=== PATIENT | male | born 1955 | race Caucasian/White ===

== ENCOUNTER 2020-09-14 09:56 | Outpatient (REF) | payer MEDICARE, OTHER, SELFPAY | END 2020-09-14 09:57 | disposition home or self-care (01) | LOC: HO.HMGCLDS 09:56 | PROVIDERS: PCP Internal Medicine; Visit Provider Internal Medicine | DX: Z20.828 Contact with and (suspected) exposure to other viral communicable diseases (principal) | CPT/HCPCS: C9803; U0003 ==

== ENCOUNTER 2021-05-22 10:26 | Outpatient (REF) | payer MEDICARE, OTHER, SELFPAY ==
--- NOTE | ~2021-05-22 | CT_ITS ---
EXAMINATION: CT CHEST SCREENING CLINICAL INFORMATION: Smoking history. Lung cancer screening. COMPARISON: Previous chest CT scans most recent March 2020 TECHNIQUE: Multidetector volumetric CT imaging of the chest is performed without contrast using low dose technique. Additional 2D coronal and sagittal reformatted images and axial 3D maximum intensity projection (MIP) images are generated on the CT workstation. This CT examination was performed using dose optimization techniques as appropriate, variously including the following: *Automated exposure control *Adjustment of mA and/or kV according to patient size (this includes techniques or standardized protocols for targeted exams where dose is matched to indication/reason for exam; i.e. extremities or head) *Use of iterative reconstruction technique DLP: 53 mGy-cm FINDINGS: LUNGS: The small pulmonary nodules in the right upper and right middle lobes are stable. No new pulmonary nodule is seen. MEDIASTINUM: The ascending thoracic aorta is dilated and measures 4.5 x 5 cm. This is increased from 4.1 x 4.4 cm March 2020. There are post-CABG changes. The heart does not appear enlarged. There is no pericardial effusion. There are no enlarged hilar or mediastinal lymph nodes. PLEURA: There is no pleural effusion. No pleural mass or thickening. AXILLA: No lymphadenopathy. UPPER ABDOMEN: The gallbladder is been removed. There is a subxiphoid the xiphoid hernia containing fat. There is diverticulosis of the colon. OSSEOUS STRUCTURES: There is an ununited median sternotomy. There are degenerative changes of the spine. CT/CT lung screening IMPRESSION: Stable right pulmonary nodules. Increasing dilatation of the ascending thoracic aorta now measuring 4.5 x 5 cm. Post-CABG changes. Ununited median sternotomy and subxiphoid hernia containing fat.. ASSESSMENT: Lung-RADS category 2S: Benign RECOMMENDATION: Annual low-dose chest CT follow-up in one year recommended. A surgical consultation for increasing size of the ascending thoracic aorta should be considered.
== END 2021-05-22 10:27 | disposition home or self-care (01) ==
LOC: HO.CT 10:26
PROVIDERS: PCP Internal Medicine; Visit Provider Physician Assistant Medical
DX: Z12.2 Encounter for screening for malignant neoplasm of respiratory organs (principal); F17.210 Nicotine dependence, cigarettes, uncomplicated
CPT/HCPCS: 71271

== ENCOUNTER 2021-06-19 11:08 | Outpatient (REF) | payer MEDICARE, OTHER, SELFPAY ==
[2021-06-19 12:27] LABS: Anion Gap 13 (12-20); Blood Urea Nitrogen 11 mg/dL (9-16); Calcium 9.3 mg/dL (8.4-10.2); Carbon Dioxide 28 mmol/L (22-29); Chloride 102 mmol/L (96-108); Estimated Glomerular Filt Rate > 60; Glucose Random 102 mg/dL (60-115); Potassium 4.3 mmol/L (3.3-5.1); Sodium 139 mmol/L (135-145)
== END 2021-06-19 11:09 | disposition home or self-care (01) ==
LOC: HO.LAB 11:08
PROVIDERS: Visit Provider Internal Medicine Cardiovascular Disease
DX: I71.2 Thoracic aortic aneurysm, without rupture (principal)
CPT/HCPCS: 36415; 80048

== ENCOUNTER 2021-06-22 07:38 | Outpatient (REF) | payer MEDICARE, OTHER, SELFPAY ==
--- NOTE | ~2021-06-22 | CT_ITS ---
EXAMINATION: CT ANGIOGRAM CHEST CLINICAL INFORMATION: Thoracic aortic aneurysm COMPARISON: Chest CT on 04/18/2020 TECHNIQUE: Multiple axial images were obtained through the chest after the administration of 70 mL of Omnipaque 350 intravenous contrast. Extensive vascular post-processing including two-dimensional and three-dimensional reformatted images were created and reviewed on an independent workstation. This CT examination was performed using dose optimization techniques as appropriate, variously including the following: *Automated exposure control *Adjustment of mA and/or kV according to patient size (this includes techniques or standardized protocols for targeted exams where dose is matched to indication/reason for exam; i.e. extremities or head) *Use of iterative reconstruction technique DLP: 143 mGy-cm FINDINGS: Heart/Aorta: The heart is globally normal in size. The coronary arteries arise from the expected coronary sinuses; there is no anomaly of coronary arterial origin. The thoracic aorta is enlarged measuring 4.0 x 3.8 cm in the midportion. This tapers to normal caliber at the level of the arch. The descending thoracic aorta is normal in caliber. There is no evidence of aortic dissection, intramural hematoma, or atherosclerotic penetrating ulcer. Aortic arch anatomy is conventional. Mild atherosclerotic disease. There are coronary artery calcifications. Other Cardiovascular: The main pulmonary artery is normal in caliber. The well opacified portions of the pulmonary arterial system are patent. There is no pericardial effusion or pericardial thickening. Mediastinum/Teresa: There are no pathologically enlarged mediastinal or hilar lymph nodes. Pleura: The pleural surfaces are normal bilaterally. There is no pleural effusion. There is no pneumothorax. Lungs: Multiple scattered micronodules (less than 4 mm). There is no pulmonary parenchymal mass, consolidation, ground-glass attenuation, or discrete suspicious pulmonary nodule. Airways: The central airways are patent. The peripheral airways are normal. There is no bronchiectasis. Upper Abdomen: Partially visualized focus of hyperenhancement in the inferior right hepatic lobe measuring 1.3 cm. Musculoskeletal: There is no aggressive osseous lesion. The structures of the chest wall, including the bones, are normal for age. CT/CT angio chest IMPRESSION: 1. Ascending thoracic aortic aneurysm measuring 4.0 cm. 2. Partially visualized focus of hyperenhancement in the inferior right hepatic lobe measuring 1.3 cm. Not previously imaged. This may represent a small hemangioma. Consider ultrasound for further evaluation.
[2021-06-22] MEDS: iohexoL 350 MG/ML 100 ML INFUS..BTL 70 ML IV (09:08)
== END 2021-06-22 07:39 | disposition home or self-care (01) ==
LOC: HO.CT 07:38
PROVIDERS: Visit Provider Internal Medicine Cardiovascular Disease
DX: I71.2 Thoracic aortic aneurysm, without rupture (principal)
CPT/HCPCS: 71275; Q9967

== ENCOUNTER → 2021-07-26 09:53 | Outpatient (BNVA) | payer MEDICARE, OTHER, SELFPAY | PROVIDERS: Visit Provider Internal Medicine Cardiovascular Disease | DX: K43.2 Incisional hernia without obstruction or gangrene (principal); I25.10 Atherosclerotic heart disease of native coronary artery without angina pectoris; I77.810 Thoracic aortic ectasia | CPT/HCPCS: 93005; 99212 ==

== ENCOUNTER → 2021-08-21 15:27 | Outpatient (BNVA) | payer MEDICARE, OTHER, SELFPAY | PROVIDERS: Visit Provider Surgery | DX: K43.2 Incisional hernia without obstruction or gangrene (principal) | CPT/HCPCS: 99202 ==

== ENCOUNTER 2021-09-26 07:24 | Day surgery (SDC) | payer MEDICARE, OTHER, SELFPAY ==
[2021-09-18 11:17] VITALS: BMI 27.4
--- NOTE | 2021-09-18 13:34 | HO.ANESPROP2 ---
Documented by User: Anupama Blanchard NP 09/25/21 10:32 HPI - Anesthesia Eval Consult details Narrative: 66yo M for Epigastric Incisional Hernia Repair Referred to Gen Surg by cardiology at yearly cardiol f/u appt 06/2021. Clinically stable at 06/2021 cardiac appointment [facility] Active Problems Active Problems: All Active Problems (Updated 09/18/21 @ 11:12 by Birgit Sam RN) Dilation of thoracic aorta (Acute) Ascending aortic aneurysm (Acute) Postoperative abdominal hernia (Acute) Incisional hernia (Acute) CAD (coronary artery disease) (Acute) Personal history of nicotine dependence (Acute) Past Medical History Medical History Ascending aortic aneurysm CAD (coronary artery disease) COPD (chronic obstructive pulmonary disease) HTN (hypertension) Hyperlipidemia Incisional hernia Personal history of nicotine dependence Family History Family History Father No problems noted. Mother Diabetes mellitus Myocardial infarction CVD (cardiovascular disease) Maternal Grandfather No problems noted. Maternal Grandmother No problems noted. Paternal Grandfather No problems noted. Paternal Grandmother History of heart attack Brother No problems noted. Brother No problems noted. Brother No problems noted. Brother No problems noted. Sister HTN (hypertension) Diabetes mellitus Crohn's disease Sister No problems noted. Son No problems noted. Daughter No problems noted. Surgical History Surgical History History of colonoscopy History of endoscopy History of esophagogastroduodenoscopy (EGD) History of inguinal hernia History of microdiscectomy History of plastic surgery History of surgery Hx of cholecystectomy S/P triple vessel bypass Social History Social History Patient Tobacco Use Status: Current everyday Tobacco user Tobacco use type: Cigarette Cigarettes Per Day: 10 Advance Directives Information Provided: Yes (informational brochure mailed) Advance Directives on File: No Meds Allergies Allergy/AdvReac Type Severity Reaction Status Date / Time No Known Allergies Allergy Verified 09/26/21 07:55 [No Known Allergies*] Home Medications Medication Instructions Recorded Confirmed Last Taken Type amlodipine 5 mg tablet 5 mg PO DAILY 07/26/21 09/18/2109/26/21 06:30 History aspirin 81 mg tablet,delayed 81 mg PO DAILY 07/26/21 09/18/21 09/25/21 07:30 History release (Adult Low Dose Aspirin) atorvastatin 80 mg tablet 80 mg PO DAILY 07/26/21 09/18/21 Unknown History clopidogrel 75 mg tablet (Plavix) 75 mg PO DAILY 07/26/21 09/18/21 09/20/21 07:30 History finasteride 5 mg tablet 5 mg PO DAILY 07/26/21 09/18/21 Unknown History hydrochlorothiazide 25 mg tablet 25 mg PO DAILY 07/26/21 09/18/21 Unknown History lisinopril 20 mg tablet 20 mg PO DAILY 07/26/21 09/18/21 Unknown History metoprolol tartrate 25 mg tablet 12.5 mg PO BID 07/26/21 09/18/21 09/26/21 06:30 History pantoprazole 40 mg tablet,delayed 40 mg PO DAILY 07/26/21 09/18/21 09/26/21 06:30 History release tamsulosin 0.4 mg capsule 0.4 mg PO DAILY 07/26/21 09/18/21 Unknown History tiotropium bromide 1.25 2 puff INHALATION DAILY 07/26/21 09/18/21 09/26/21 06:30 History mcg/actuation mist for inhalation (Spiriva Respimat) Exam Exam Date and Time: September 18, 2021 1334 Height,Weight and Vital Signs: Height 5 ft 5 in Weight 74.843 kg Narrative Narrative: EKG 06/2021 Normal sinus rhythm 61 beats per minute, premature atrial complexes with aberrant conduction, left atrial QTC [address] angio chest 05/2021 IMPRESSION:? ? 1.? Ascending thoracic aortic aneurysm measuring 4.0 cm. 2.? Partially visualized focus of hyperenhancement in the inferior right hepatic lobe measuring 1.3 cm. Not previously imaged. This may represent a small hemangioma. Consider ultrasound for further evaluation. ECHO 2019 Nml LV systolic function Impaired relax Cardiac valve wnl RV systolic pressure normal No pericard effusion Assessment and Plan Assessment Anesthesia Assessment: Chart Reviewed Documented by User: Ibis Conde MD 09/26/21 08:53 [facility] Past Medical History Medical History Ascending aortic aneurysm CAD (coronary artery disease) COPD (chronic obstructive pulmonary disease) HTN (hypertension) Hyperlipidemia Incisional hernia Personal history of nicotine dependence Family History Family History Father No problems noted. Mother Diabetes mellitus Myocardial infarction CVD (cardiovascular disease) Maternal Grandfather No problems noted. Maternal Grandmother No problems noted. Paternal Grandfather No problems noted. Paternal Grandmother History of heart attack Brother No problems noted. Brother No problems noted. Brother No problems noted. Brother No problems noted. Sister HTN (hypertension) Diabetes mellitus Crohn's disease Sister No problems noted. Son No problems noted. Daughter No problems noted. Surgical History Surgical History History of colonoscopy History of endoscopy History of esophagogastroduodenoscopy (EGD) History of inguinal hernia History of microdiscectomy History of plastic surgery History of surgery Hx of cholecystectomy S/P triple vessel bypass History of Problems with Anesthesia: No Social History Social History Patient Tobacco Use Status: Current everyday Tobacco user Tobacco use type: Cigarette Cigarettes Per Day: 10 Advance Directives Information Provided: Yes (informational brochure mailed) Advance Directives on File: No Meds Allergies Allergy/AdvReac Type Severity Reaction Status Date / Time No Known Allergies Allergy Verified 09/26/21 07:55 [No Known Allergies*] Home Medications Medication Instructions Recorded Confirmed Last Taken Type amlodipine 5 mg tablet 5 mg PO DAILY 07/26/21 09/18/21 09/26/21 06:30 History aspirin 81 mg tablet,delayed 81 mg PO DAILY 07/26/21 09/18/21 09/25/21 07:30 History release (Adult Low Dose Aspirin) atorvastatin 80 mg tablet 80 mg PO DAILY 07/26/21 09/18/21 Unknown History clopidogrel 75 mg tablet (Plavix) 75 mg PO DAILY 07/26/21 09/18/21 09/20/21 07:30 History finasteride 5 mg tablet 5 mg PO DAILY 07/26/21 09/18/21 Unknown History hydrochlorothiazide 25 mg tablet 25 mg PO DAILY 07/26/21 09/18/21 Unknown History lisinopril 20 mg tablet 20 mg PO DAILY 07/26/21 09/18/21 Unknown History metoprolol tartrate 25 mg tablet 12.5 mg PO BID 07/26/21 09/18/21 09/26/21 06:30 History pantoprazole 40 mg tablet,delayed 40 mg PO DAILY 07/26/21 09/18/21 09/26/21 06:30 History release tamsulosin 0.4 mg capsule 0.4 mg PO DAILY 07/26/21 09/18/21 Unknown History tiotropium bromide 1.25 2 puff INHALATION DAILY 07/26/21 09/18/21 09/26/21 06:30 History mcg/actuation mist for inhalation (Spiriva Respimat) Exam Airway Mallampati Class: II TM Dist: >3cm Neck ROM: Full Loose/Missing/Broken Teeth: No Heart: RRR Lungs: exp wheeze right anterior lung field Assessment and Plan Assessment Anesthesia Assessment: Anesthesia Plan Discussed Final Anesthetic Review History of Problems with Anesthesia: No NPO: Yes ASA Class: III Final Preanesthetic Review: Meds/Allgs Chart Reviewed, Consent Obtained/Reviewed and Anes Risks/Benef Reviewed Patient Risk: Intermediate Procedure Risk: Low Anesthetic Plan Anesthetic Plan: GA Disposition: Standard PACU
[2021-09-26 08:00] VITALS: BP 124/76; PULSE 55; RESP 18; TEMP 37.2; O2SAT 97
--- NOTE | 2021-09-26 08:07 | P.HPSUR_ITS ---
Pre-Procedural Eval Section A Date of Service: 09/26/21 Section B Chief Complaint: Incisional hernia Details of Present Illness: has reducible mass on epigastric area from old CABG incision Relevant Family History (Specify if Yes): No Relevant Social History: Tobacco Use Present Medications: see Short Stay Collaborative assessment Medical History: Significant History (Coronary artery disease, aortic aneurysm) History of Previous Operations: Relevant previous surgery/procedure and date(s) (CABG) Allergies: Allergies Allergy/AdvReac Type Severity Reaction Status Date / Time No Known Allergies Allergy Verified 09/26/21 07:55 [No Known Allergies*] Review of Systems Sugical H&P ROS: Negative: Constitution, Cardiovascular, Respiratory, Neurological, Psychiatric, Hem-Onc, Allergic/Immunologic, Gastrointestinal, Genitourinary, Musculoskeletal, Integumentary, Endocrine and Eyes/Ears/Nose/Throat Exam Surgical H&P Exam: Normal: HEENT, Normal: Heart, Normal: Lungs, Normal: Extre mities, Normal: Skin and Normal: Neurological and Significant Findings: Abdomen (Reducible incisional hernia in the epigastric area just below the xiphoid) Plan Diagnosis/Plan: Unchanged I have reviewed the history and physical and performed a pertinent physical examination on my patient. No changes have occurred unless specified.
[2021-09-26] MEDS: Lactated Ringers 1,000 ML 50 ML IVCONT (08:11)
--- NOTE | 2021-09-26 09:06 | P.OP_ITS ---
Operative Note Operative Note Date of Service: 09/26/21 Narrative: Preop diagnosis: Incisional hernia, epigastric area Postop diagnosis: Incisional hernia, epigastric area Procedure: Repair of an incisional hernia with Ventralex mesh Surgeon: Leo Saldaña MD university administrative assistant: CYNDIE Mccarthy The patient is a 66-year-old male with a reducible mass on the epigastric area immediately inferior to the xiphoid from his previous CABG procedure in the past. He wanted to proceed with repair. He understood the technique of repair with this incisional hernia with mesh. He was aware of the risks, benefits, and alternatives . He was brought to the operating room and placed supine on the table under general anesthesia via laryngeal mask airway. The abdomen was prepped and draped in usual sterile fashion. A surgical time-out was done. The patient received cefazolin 2 g IV preoperatively I made a short incision on the skin below the xiphoid using blade 15 after infiltration with lidocaine 1%. This was carried down through the full- thickness of the skin and subcutaneous fat with electrocautery until was able to visualize the hernia sac. I sharply dissected the hernia sac off of the rest of the subcutaneous layer down to the fascia. I was able to define the fascia. I the hernia sac off of the fascial layer. I was able to actually keep the peritoneal layer as the hernia sac intact and proceeded to define the fascial edge. The fascial defect was about 3.9 cm in diameter. I therefore chose a medium-sized Ventralex mesh. I positioned this under the fascia and above the peritoneal layer to cover the entire fascial defect. This was flattened. I secured the Prolene straps of the mesh with Prolene 2 sutures to the fascial edge. I then closed the fascial layer with a running Maxon 1 stitch over the mesh. I irrigated. I reapposed the subcutaneous layer with Dexon 3-0 interrupted sutures. Skin closure was achieved with Dexon 4-0 subcuticular running stitch. Steri-Strips and dressings were applied. The incision was then infiltrated with Marcaine 0.5% for postop analgesia. The procedure was then completed. The patient tolerated procedure well. There were no complications noted. Initial and final counts of sponges and instruments were correct. Estimated blood loss was about 3 cc The patient was extubated without difficulty and transferred to the recovery room with stable vital signs.
[2021-09-26 09:15] VITALS: BP 124/72; PULSE 68; RESP 16; TEMP 36.7; O2SAT 97
[2021-09-26 09:20] VITALS: BP 122/76; PULSE 72; RESP 16; O2SAT 98
[2021-09-26 09:25] VITALS: BP 124/74; PULSE 68; RESP 16; O2SAT 98
[2021-09-26 09:30] VITALS: BP 117/80; PULSE 60; RESP 16; O2SAT 97
[2021-09-26 09:45] VITALS: BP 124/56; PULSE 57; RESP 16; TEMP 36.7; O2SAT 97
== END 2021-09-26 10:31 | disposition home or self-care (01) ==
PROVIDERS: Visit Provider Surgery
PROC: (CPT 49560; principal; 2021-09-26 09:10)
DX: K43.2 Incisional hernia without obstruction or gangrene (principal); I25.10 Atherosclerotic heart disease of native coronary artery without angina pectoris; F17.210 Nicotine dependence, cigarettes, uncomplicated; Z95.1 Presence of aortocoronary bypass graft; I10 Essential (primary) hypertension; E78.5 Hyperlipidemia, unspecified; Z79.82 Long term (current) use of aspirin; Z79.899 Other long term (current) drug therapy; Z79.01 Long term (current) use of anticoagulants; Z90.49 Acquired absence of other specified parts of digestive tract
CPT/HCPCS: 49560; 49568; C1781; J0690; J1100; J1885; J2250; J2405; J3010

== ENCOUNTER → 2021-10-09 09:44 | Outpatient (BNVA) | payer MEDICARE, OTHER, SELFPAY | PROVIDERS: Visit Provider Surgery | DX: Z48.815 Encounter for surgical aftercare following surgery on the digestive system (principal); Z87.19 Personal history of other diseases of the digestive system | CPT/HCPCS: 99212 ==

== ENCOUNTER → 2022-01-04 09:21 | Outpatient (BNVA) | payer MEDICARE, OTHER, SELFPAY | PROVIDERS: PCP Obstetrics & Gynecology; Referring Provider Internal Medicine; Visit Provider Internal Medicine Cardiovascular Disease | DX: I25.10 Atherosclerotic heart disease of native coronary artery without angina pectoris (principal); I77.810 Thoracic aortic ectasia; Z79.82 Long term (current) use of aspirin; Z79.899 Other long term (current) drug therapy; Z95.1 Presence of aortocoronary bypass graft | CPT/HCPCS: 99212 ==

== ENCOUNTER → 2022-02-21 08:02 | Outpatient (REF) | payer MEDICARE, OTHER, SELFPAY ==
--- NOTE | 2022-02-21 08:04 | CA_ITS ---
Transthoracic Echocardiogram Patient (Last, First, Middle): Cullen Greer B Gender: Male Date of : 1955 Age: 66 Procedure Date: 02/21/2022 Procedure Type: Transthoracic Echocardiogram Location: OP Height: 165.1 cm Weight: 73.48 kg BSA: 1.81 m2 Heart Rate: bpm BP: 120 / 80 mmHg Vice President Process: SB Referring MD: Rajesh Cason MD Symptoms: I77.810 - Thoracic aortic ectasia Study Quality: Adequate ECG Rhythm: Bradycardia Conclusions: - Normal left ventricular size, thickness, and systolic function. The visually estimated ejection fraction is between 55-60%. - E/E prime ratio is between 8 and 15 consistent with indeterminate filling pressures. - Normal right ventricular cavity size. There is borderline right ventricular systolic function. - Low global longitudinal strain. Findings Left Ventricle Normal left ventricular size, thickness, and systolic function. The visually estimated ejection fraction is between 55-60%. There is no evidence of regional wall motion abnormalities. Abnormal diastolic function is noted. Spectral Doppler is indicative of a pseudonormal filling pattern. E/E prime ratio is between 8 and 15 consistent with indeterminate filling pressures. Right Ventricle Normal right ventricular cavity size. There is borderline right ventricular systolic function. Atria Both atria are normal in size. Aortic Valve There is a normal trileaflet aortic valve. There is mild calcification of the aortic valve. There is no aortic valve stenosis. There is no aortic valve regurgitation. Mitral Valve Normal mitral valve structure and function. There is trace mitral valve regurgitation. There is no mitral valve stenosis. Pulmonic Valve Normal pulmonic valve structure and function. There is trace pulmonic valve regurgitation. Tricuspid Valve Normal tricuspid valve structure and function. There is trace tricuspid valve regurgitation. Normal right atrial pressure. There is no evidence of pulmonary hypertension. Great Vessels There is mild dilatation of the ascending aorta measuring 4.00 cm. The visualized portions of the pulmonary artery and branches are normal. Venous The inferior vena cava is normal in size and collapses greater than 50% with inspiration. Pericardium/Pleural There is no evidence of pericardial effusion. Prior Study Comparison Changes noted compared to prior study dated: 02/19/2019. Mild dilation of ascending aorta 4cm. Borderline RV function. Measurements 2D Linear Measurements IVSd: 0.81 0.6-0.9/0.6-1.0 cm LVIDd: 4.69 3.9-5.3/4.2-5.9 cm LVIDd Index: 2.59 2.4-3.2/2.2-3.1 cm/m2 LVIDs: 2.74 2.0-3.6 cm LVPWd: 0.84 0.7-1.1 cm LA Diam: 3.40 2.7-3.8/3.0-4.0 cm LAIDs Index: 1.88 1.5-2.3 cm/m2 LV Mass: 157.87 67-162/88-224 g LV Mass Index: 87.22 43-95/49-115 g/m2 LVOT Diam: 1.90 3.0+(-)1.3 cm 2D Systolic Function EF 4C: 60.70 >55% EF 2C: 63.90 >55% EF BiP: 62.40 >55% Mitral Valve MV Pk E: 1.05 MV PK A: 0.67 MV Decel Time: 205.00 E/A: 1.60 E'Lateral: 9.14 E'Medial: 6.85 E/E' Med: 15.30 E/E' Lat: 11.50 PHT: 60.00 MVA PHT: 3.67 Decel Iron: 5.12 Aortic Valve AoV Pk Atul: 1.42 AoV Mn Atul: 0.91 AoV VTI: 0.29 AoV Pk Grad: 8.00 Aov Mn Grad: 4.00 DEBRA Cont.VTI: 2.74 LVOT LVOT Pk Atul: 1.25 LVOT Mn Atul: 0.80 LVOT VTI: 0.28 LVOT Pk Grad: 6.00 LVOT Mn Grad: 3.00 LVOT Diam: 1.90 LVOT Area: 2.84 Diastolic Function MV Pk E: 1.05 MV Pk A: 0.67 E/A: 1.60 E'Medial: 6.85 E/E' Med: 15.30 E' Laterial: 9.14 E/E' Lat: 11.50 Right Ventricle TAPSE (mm): 12.40 TVS' Atul: 7.40 Tricuspid Valve TR Pk Atul: 2.25 TR Pk Grad: 20.00 RA Press: 3.00 RVSP: 23.00 Great Vessels Aorta Sinus of Valsalva: 3.15 2.0-3.[address] Ridge: 3.39 1.7-3.4 cm Ao Asc: 4.00 2.1-3.4 cm Pulmonary Veins Pulm Vein S/D 0.90 Pulmonary Valve PV Pk Atul: 1.23 Peak PV Grad: 6.00 Updated in Other Vendor System with Status of Final Rajesh Cason MD electronically signed on 02/24/2022 7:20:15 AM with status of Final
== END ==
LOC: HO.CARD 08:02
PROVIDERS: PCP Internal Medicine; Visit Provider Internal Medicine Cardiovascular Disease
DX: I77.810 Thoracic aortic ectasia (principal)
CPT/HCPCS: 93306

== ENCOUNTER → 2022-06-25 11:25 | Outpatient (BNVA) | payer MEDICARE, OTHER, SELFPAY | PROVIDERS: PCP Obstetrics & Gynecology; Visit Provider Internal Medicine Cardiovascular Disease | DX: Z01.810 Encounter for preprocedural cardiovascular examination (principal); I25.10 Atherosclerotic heart disease of native coronary artery without angina pectoris; I71.2 Thoracic aortic aneurysm, without rupture; J44.9 Chronic obstructive pulmonary disease, unspecified; F17.210 Nicotine dependence, cigarettes, uncomplicated; Z79.899 Other long term (current) drug therapy | CPT/HCPCS: 93005; 99212 ==

== ENCOUNTER 2022-06-26 08:27 | Outpatient (REF) | payer MEDICARE, OTHER, SELFPAY ==
--- NOTE | ~2022-06-26 | CT_ITS ---
EXAMINATION: CT CHEST SCREENING CLINICAL INFORMATION: Current smoker. 50 pack-year history. COMPARISON: Previous chest CT scans, most recent April and May 2021. TECHNIQUE: Multidetector volumetric CT imaging of the chest was performed without contrast using low-dose technique. Additional 2D coronal and sagittal reformatted images and axial 3D maximum intensity projection (MIP) images were generated on the CT workstation. This CT examination was performed using dose optimization techniques as appropriate, variously including the following: *Automated exposure control *Adjustment of mA and/or kV according to patient size (this includes techniques or standardized protocols for targeted exams where dose is matched to indication/reason for exam; i.e. extremities or head) *Use of iterative reconstruction technique DLP: 49 mGy-cm FINDINGS: LUNGS: There is mild emphysema. There is a 3 mm peripheral or subpleural right middle lobe nodule adjacent to the minor fissure, probably representing a subpleural lymph node (axial image 321, series 5). The lungs are otherwise clear. No new pulmonary nodule is seen. MEDIASTINUM: The ascending thoracic aorta is slightly dilated measuring 4 x 4.4 cm. This is similar to previous exams. There are post CABG changes. The heart size is normal. There is no pericardial effusion. There are small mediastinal lymph nodes. No enlarged lymph nodes. PLEURA: There is no pleural effusion. No pleural mass or thickening. AXILLAE: No lymphadenopathy. UPPER ABDOMEN: The gallbladder has been removed. There is diverticulosis of the colon. There is a duodenal diverticulum adjacent to the head of the pancreas. There is question of wall thickening of the stomach. There may have been interval repair of a subxiphoid hernia. OSSEOUS STRUCTURES: There is an ununited median sternotomy. There are degenerative changes of the spine. CT/CT lung screening IMPRESSION: Mild emphysema. Stable small right middle lobe nodule. Post CABG changes. Slightly dilated ascending thoracic aorta, similar to previous exams. Question wall thickening of the stomach. ASSESSMENT: Lung-RADS category 2S: Benign RECOMMENDATION: Annual low-dose chest CT follow up recommended. S for gastric wall thickening which could be evaluated with upper GI or endoscopy if clinically indicated.
== END 2022-06-26 08:28 | disposition home or self-care (01) ==
LOC: HO.CT 08:27
PROVIDERS: Visit Provider Physician Assistant Medical
DX: Z12.2 Encounter for screening for malignant neoplasm of respiratory organs (principal); F17.210 Nicotine dependence, cigarettes, uncomplicated
CPT/HCPCS: 71271

== ENCOUNTER → 2022-09-12 09:14 | Outpatient (BNVA) | payer MEDICARE, OTHER, SELFPAY | PROVIDERS: PCP Internal Medicine; Referring Provider Internal Medicine; Visit Provider Surgery | DX: Z12.11 Encounter for screening for malignant neoplasm of colon (principal); K22.70 Barrett's esophagus without dysplasia | CPT/HCPCS: 99212 ==

== ENCOUNTER → 2022-09-18 08:46 | Outpatient (BNVA) | payer MEDICARE, OTHER, SELFPAY | PROVIDERS: PCP Internal Medicine; Visit Provider Internal Medicine | DX: K22.70 Barrett's esophagus without dysplasia (principal); Z86.010 Personal history of colon polyps | CPT/HCPCS: 99202 ==

== ENCOUNTER 2022-10-18 07:15 | Day surgery (SDC) | payer MEDICARE, OTHER, SELFPAY ==
[2022-10-15 09:56] VITALS: BMI 26.6
[2022-10-15 10:21] VITALS: BMI 26.6
--- NOTE | 2022-10-17 10:10 | HO.ANESPROP2 ---
Documented by User: Anupama Blanchard NP 10/17/22 10:14 HPI - Anesthesia Eval Consult details Narrative: 67yo M for Upper Endoscopy and Colonoscopy Stable at yearly cardiology appt 05/2022 [facility] Active Problems Active Problems: All Active Problems (Updated 10/15/22 @ 10:25 by Lauryn Lala, ILEANA) Dilation of thoracic aorta (Acute) Ascending aortic aneurysm (Acute) Postoperative abdominal hernia (Acute) Preop cardiovascular exam (Acute) Personal history of colonic polyps (Acute) Barretts esophagus (Acute) Colon cancer screening (Acute) Incisional hernia (Acute) CAD (coronary artery disease) (Acute) Personal history of nicotine dependence (Acute) Past Medical History Medical History Ascending aortic aneurysm Barretts esophagus CAD (coronary artery disease) Colon cancer screening COPD (chronic obstructive pulmonary disease) HTN (hypertension) Hyperlipidemia Incisional hernia 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 Mother Diabetes mellitus Myocardial infarction CVD (cardiovascular disease) Maternal Grandfather No problems noted. Maternal Grandmother No problems noted. Paternal Grandfather No problems noted. Paternal Grandmother History of heart attack Brother No problems noted. Brother No problems noted. Brother No problems noted. Brother No problems noted. Sister HTN (hypertension) Diabetes mellitus Crohn's disease Sister No problems noted. Son No problems noted. Daughter No problems noted. Surgical History Surgical History History of colonoscopy History of endoscopy History of esophagogastroduodenoscopy (EGD) History of incisional hernia repair History of inguinal hernia History of microdiscectomy History of plastic surgery History of surgery Hx of cholecystectomy S/P triple vessel bypass History of Problems with Anesthesia: No Social History Social History Are you a primary care clinician to a significant other at home: No Do you presently have visiting nurse or other home services: No Alcohol intake: current Alcohol intake frequency: a few times a week Alcohol type: beer Patient Tobacco Use Status: Current everyday Tobacco user Tobacco use type: Cigarette Cigarettes Per Day: 10 Years Smoked: 50+ Have you been hit, kicked, punched, or otherwise hurt by someone within the past year? If so, by whom?: No Are you DNR?: No Advance Directives: No Advance Directives Information Provided: Yes Advance Directives on File: No Recently lost weight without trying: No Nutrition Risks: No Nutritional Risk Poor oral hygiene: No Meds Allergies Allergy/AdvReac Type Severity Reaction Status Date / Time No Known Allergies Allergy Verified 10/15/22 10:21 [No Known Allergies*] Home Medications Medication Instructions Recorded Confirmed Last Taken Type pantoprazole 40 mg tablet,delayed 40 mg PO DAILY 07/26/21 10/15/22 10/18/22 06:45 History release tamsulosin 0.4 mg capsule 0.4 mg PO DAILY 07/26/21 10/15/22 Unknown History tiotropium bromide 1.25 2 puff inhalation DAILY 07/26/21 10/15/22 10/18/22 06:45 History mcg/actuation mist for inhalation (Spiriva Respimat) diclofenac sodium 1 % topical gel 2 g topical QID 09/12/22 10/15/22 Unknown History (Arthritis Pain (diclofenac)) ezetimibe 10 mg-rosuvastatin 10 mg 1 tab PO DAILY 09/12/22 10/15/22 Unknown History tablet fluticasone 500 mcg-salmeterol 50 1 inh inhalation BID 09/12/22 10/15/22 10/18/22 06:45 History mcg/dose blistr powdr for inhalation (Advair Diskus) Exam Exam Date and Time: October 17, 2022 1010 Height,Weight and Vital Signs: Height 5 ft 5 in Weight 72.575 kg Narrative Narrative: EKG 05/2022 Sinus bradycardia 58 beats per minute, incomplete right bundle-branch block, QTC 435 millisecond ECHO 01/2022 Conclusions: - Normal left ventricular size, thickness, and systolic function. The visually estimated ejection fraction is between 55-60%.? ? ? - E/E prime ratio is between 8 and 15 consistent with? indeterminate filling pressures. ? - Normal right ventricular cavity size.? There is borderline ? ? right ventricular systolic function. ? - Low global longitudinal strain.? ? ? CT lung screening 05/2022 IMPRESSION: Mild emphysema. Stable small right middle lobe nodule. Post CABG changes. Slightly dilated ascending thoracic aorta, similar to previous exams. Question wall thickening of the stomach. 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 Mother Diabetes mellitus Myocardial infarction CVD (cardiovascular disease) Maternal Grandfather No problems noted. Maternal Grandmother No problems noted. Paternal Grandfather No problems noted. Paternal Grandmother History of heart attack Brother No problems noted. Brother No problems noted. Brother No problems noted. Brother No problems noted. Sister HTN (hypertension) Diabetes mellitus Crohn's disease Sister No problems noted. Son No problems noted. Daughter No problems noted. Family history of problems with anesthesia: No Surgical History Surgical History History of colonoscopy History of endoscopy History of esophagogastroduodenoscopy (EGD) History of incisional hernia repair History of inguinal hernia History of microdiscectomy History of plastic surgery History of surgery Hx of cholecystectomy S/P triple vessel bypass Social History Social History Are you a primary care clinician to a significant other at home: No Do you presently have visiting nurse or other home services: No Alcohol intake: current Alcohol intake frequency: a few times a week Alcohol type: beer Patient Tobacco Use Status: Current everyday Tobacco user Tobacco use type: Cigarette Cigarettes Per Day: 10 Years Smoked: 50+ Have you been hit, kicked, punched, or otherwise hurt by someone within the past year? If so, by whom?: No Are you DNR?: No Advance Directives: No Advance Directives Information Provided: Yes Advance Directives on File: No Recently lost weight without trying: No Nutrition Risks: No Nutritional Risk Poor oral hygiene: No Meds Allergies Allergy/AdvReac Type Severity Reaction Status Date / Time No Known Allergies Allergy Verified 10/15/22 10:21 [No Known Allergies*] Home Medications Medication Instructions Recorded Confirmed Last Taken Type pantoprazole 40 mg tablet,delayed 40 mg PO DAILY 07/26/21 10/15/22 10/18/22 06:45 History release tamsulosin 0.4 mg capsule 0.4 mg PO DAILY 07/26/21 10/15/22 Unknown History tiotropium bromide 1.25 2 puff inhalation DAILY 07/26/21 10/15/22 10/18/22 06:45 History mcg/actuation mist for inhalation (Spiriva Respimat) diclofenac sodium 1 % topical gel 2 g topical QID 09/12/22 10/15/22 Unknown History (Arthritis Pain (diclofenac)) ezetimibe 10 mg-rosuvastatin 10 mg 1 tab PO DAILY 09/12/22 10/15/22 Unknown History tablet fluticasone 500 mcg-salmeterol 50 1 inh inhalation BID 09/12/22 10/15/22 10/18/22 06:45 History mcg/dose blistr powdr for inhalation (Advair Diskus) Exam Airway Mallampati Class: II TM Dist: >3cm Neck ROM: Full Partial: Upper Heart: [id number] Lungs: cta b/l Assessment and Plan Assessment Anesthesia Assessment: Anesthesia Plan Discussed Final Anesthetic Review Family History of Problems with Anesthesia: No NPO: Yes ASA Class: III Final Preanesthetic Review: No Changes in Pt Med Stat, Meds/Allgs Chart Reviewed, Consent Obtained/Reviewed and Anes Risks/Benef Reviewed Patient Risk: Intermediate Procedure Risk: Intermediate Assessment/Block/Sedation in SS: Assess/Block/Sedation-SS Anesthetic Plan Anesthetic Plan: MAC: and Agree w/ Assess. and Plan Disposition: Standard PACU
[2022-10-18 07:41] VITALS: BP 131/73; PULSE 64; RESP 17; TEMP 36.7; O2SAT 98
[2022-10-18] MEDS: Lactated Ringers 1,000 ML 100 ML IVCONT (07:53)
--- NOTE | 2022-10-18 09:07 | MHC.SHP ---
Pre-Procedural Eval Section A Date of Service: 10/18/22 The History & Physical has been completed within 30 days and I have reviewed it.: Yes Section B Chief Complaint: Bhakta's esophagus, personal hx of polyps Allergies: Allergies Allergy/AdvReac Type Severity Reaction Status Date / Time No Known Allergies Allergy Verified 10/15/22 10:21 [No Known Allergies*] Plan Diagnosis/Plan: Unchanged I have reviewed the history and physical and performed a pertinent physical examination on my patient. No changes have occurred unless specified. Time Spent With Patient Time: Total time managing care of this patient today ____ minutes.
--- NOTE | 2022-10-18 10:28 | P.OP_ITS ---
Operative Note Operative Note Date of Service: 10/18/22 Narrative: Procedure:?Esophagogastroduodenoscopy and colonoscopy Endoscopist:?Nishi Art MD Indication:?Bhakta's esophagus, abnormal imaging, personal hx of polyps Anesthesia Provider:?Dr Mariluz Valdez Anesthesia Type:?MAC ?? EGD Procedure:?? The procedure, indications, preparation and potential complications were reviewed with the patient, who indicated understanding and gave written informed consent to proceed. A physical exam was performed. The endoscope was introduced through the mouth, and advanced to the third part of duodenum. The mucosa was carefully examined on slow withdrawal of the endoscope. The patient tolerated the procedure well. There were no immediate complications.? ? EGD Findings:? * Esophagus:? Normal mucosa noted in the entire esophagus. The Z line was at 36 and slightly irregular. 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 Hiatal hernia was noted with diaphragmatic pinch at 39 cm. * Stomach:? A few polyps were noted in the fundus. The stomach was noted to not distend as well as expected despite switching to air from CO2. Random cold forceps gastric biopsies were taken to rule out H Pylori infection. * Duodenum:? Normal mucosa was noted in the whole of the examined duodenum. Colonoscopy procedure: The patient then turned for the colonoscopy.? A digital rectal exam was performed which was normal. The colonoscope was then inserted through the anus and advanced through the colon to the cecum at 75 cm and terminal ileum. Mucosa was carefully examined under high definition white light as the instrument was slowly withdrawn in a retrograde panoramic fashion. Retroflexion was performed in ascending colon and rectum. The procedure was not difficult. There were no immediate obvious complications. The quality of the prep was BBPS: 3+2+3 = adequate. Withdrawal time 40 minutes. Limitations: No limitations.? Findings: Mucosa: Normal mucosa to the cecum and terminal ileum Protruding lesions: * 1 sessile polyp of size 4 mm in ascending colon. Cold snare polypectomy was performed. The polyp was completely removed and retrieved. * 1 flat polyp of size 8 mm in ascending colon. Cold snare polypectomy was performed. The polyp was completely removed and retrieved. * 2 sessile polyps of size 3-7 mm in transverse colon. Cold snare polypectomy was performed. The polyps were completely removed and retrieved. * 1 sessile polyp of size 5 mm in sigmoid colon. Cold snare polypectomy was performed. The polyp was completely removed and retrieved. * 1 pedunculated polyp of size 12 mm in sigmoid colon. Hot snare polypectomy was performed. The polyp was completely removed and retrieved. * 1 sessile polyp of size 8 mm in rectum colon. Cold snare polypectomy was performed. The polyp was completely removed and retrieved. * Medium internal hemorrhoids without stigmata of recent bleeding. Excavated lesions: * Moderate diverticulosis of whole colon. ? Impression:? * Irregular Z line (biopsy) * Hiatal hernia * Poor distensibility of stomach (biopsy) * Normal duodenum * Normal colon mucosa * Total of 7 polyps removed. * Diverticulosis * Internal hemorrhoids?? Recommendations:?? * Follow biopsy results. Our office will call or send a letter with results within 7-10 days. * CT Abd/pelvis with contrast ordered * If H pylori +, patient will be prescribed eradication therapy followed by test of cure. * Repeat colonoscopy in 3 years if at least 3 polyps are adenomas or SSL Above has been reviewed with the patient. Relevant educational hand outs were provided at discharge.?
[2022-10-18 10:33] VITALS: BP 101/62; PULSE 75; RESP 18; TEMP 36.3; O2SAT 98
[2022-10-18 10:49] VITALS: BP 127/71; PULSE 61; RESP 18; TEMP 36.3; O2SAT 98
== END 2022-10-18 11:34 | disposition home or self-care (01) ==
PROVIDERS: PCP Internal Medicine; Visit Provider Internal Medicine
PROC: (CPT 45385; principal; 2022-10-18 08:30)
DX: Z12.11 Encounter for screening for malignant neoplasm of colon (principal); Z86.010 Personal history of colon polyps; D12.2 Benign neoplasm of ascending colon; D12.3 Benign neoplasm of transverse colon; D12.5 Benign neoplasm of sigmoid colon; D12.8 Benign neoplasm of rectum; K57.30 Diverticulosis of large intestine without perforation or abscess without bleeding; K64.8 Other hemorrhoids; K22.70 Barrett's esophagus without dysplasia; K31.7 Polyp of stomach and duodenum; K44.9 Diaphragmatic hernia without obstruction or gangrene; I71.21 Aneurysm of the ascending aorta, without rupture; I10 Essential (primary) hypertension; I25.10 Atherosclerotic heart disease of native coronary artery without angina pectoris; Z95.1 Presence of aortocoronary bypass graft; E78.5 Hyperlipidemia, unspecified; J44.9 Chronic obstructive pulmonary disease, unspecified; F17.210 Nicotine dependence, cigarettes, uncomplicated; Z90.49 Acquired absence of other specified parts of digestive tract
CPT/HCPCS: 45385; 43239; 88300; 88305; 88342

== ENCOUNTER 2022-10-31 08:15 | Outpatient (REF) | payer MEDICARE, OTHER, SELFPAY ==
[2022-10-31 10:04] LABS: Blood Urea Nitrogen 13 mg/dL (9-16); Estimated Glomerular Filt Rate 59
== END 2022-10-31 08:16 | disposition home or self-care (01) ==
LOC: HO.LAB 08:15
PROVIDERS: PCP Obstetrics & Gynecology; Visit Provider Internal Medicine
DX: K31.89 Other diseases of stomach and duodenum (principal); K22.70 Barrett's esophagus without dysplasia; Z86.010 Personal history of colon polyps
CPT/HCPCS: 36415; 82565; 84520; 99212

== ENCOUNTER 2022-11-01 07:20 | Outpatient (REF) | payer MEDICARE, OTHER, SELFPAY ==
--- NOTE | ~2022-11-01 | CT_ITS ---
EXAMINATION: CT ABDOMEN AND PELVIS WITH CONTRAST CLINICAL INFORMATION: Other diseases of the stomach and duodenum. COMPARISON: Chest CT dated 05/22/2021, ultrasound dated 08/06/2019. TECHNIQUE: Multidetector volumetric images were obtained from the superior aspect of the liver through the pubic symphysis following administration 85 mL of Omnipaque 350 intravenous contrast. Sagittal and coronal reformatted images were obtained on the technologist's workstation. Oral contrast: No. This CT examination was performed using dose optimization techniques as appropriate, variously including the following: *Automated exposure control *Adjustment of mA and/or kV according to patient size (this includes techniques or standardized protocols for targeted exams where dose is matched to indication/reason for exam; i.e. extremities or head) *Use of iterative reconstruction technique DLP: 343 mGy-cm FINDINGS: LUNG BASES: Stable small 2-3 mm nodule anterior right lung base. LIVER, GALLBLADDER, AND BILIARY TREE: The liver is normal in size, shape, and attenuation. No focal hepatic lesion or biliary ductal dilatation is present. Status post cholecystectomy. PANCREAS: Unremarkable. SPLEEN: Unremarkable. ADRENAL GLANDS: Unremarkable. KIDNEYS AND URETERS: Probable cyst in the right kidney. There is a lesion in the midpole of the left kidney. This is not felt to represent a simple cyst. Fairly well circumscribed. Measures 1.5 x 1.7 cm. Medial. This was not identified on ultrasound from 2019. BLADDER: Unremarkable. GASTROINTESTINAL TRACT: The bowel pattern appears nonobstructing. The appendix is within normal limits. There is no free fluid. Diverticular disease is present but no evidence for diverticulitis. Cannot exclude some mucosal thickening in the stomach fundus and body. ABDOMINAL WALL: No significant hernia is appreciated. LYMPH NODES: There is no bulky adenopathy here. Some scattered nodes are noted. VASCULAR: Some atherosclerotic changes. No aneurysmal change. PELVIC VISCERA: Mildly prominent prostate. OSSEOUS STRUCTURES: There is a lucency through the left-sided articulating facet at L4. This may represent chronic injury versus spondylolysis. There is no listhesis at this level. CT/CT abdomen pelvis w IV con IMPRESSION: Findings suggest wall thickening in the gastric fundus and body. Consider direct visualization. There is a lesion in the mid to upper pole medial left kidney which cannot be said to be a simple cyst. No finding was seen here on ultrasound from 2019. Recommendation is ultrasound to further evaluate. Other findings are as described above.
[2022-11-01] MEDS: iohexoL 350 MG/ML 100 ML INFUS..BTL 85 ML IV (09:36)
[2022-11-01] MEDS: Barium Sulfate Oral (Berry) 450 ML ORAL.SUSP 900 ML PO (09:41)
== END 2022-11-01 07:21 | disposition home or self-care (01) ==
LOC: HO.CT 07:20
PROVIDERS: PCP Obstetrics & Gynecology; Visit Provider Internal Medicine
DX: K31.89 Other diseases of stomach and duodenum (principal)
CPT/HCPCS: 74177; Q9967

== ENCOUNTER 2022-12-24 10:10 | Outpatient (REF) | payer MEDICARE, OTHER, SELFPAY ==
--- NOTE | ~2022-12-24 | FL_ITS ---
EXAMINATION: UPPER GI SERIES CLINICAL INFORMATION: Disease of stomach and duodenum. COMPARISON: None. TECHNIQUE: Routine upper GI air-contrast study was performed in upright and lying position. FINDINGS: Following oral administration of thick barium and effervescent granules, there is normal propagation of bolus from the oral cavity through the pharynx and esophagus and into the stomach without obstruction, narrowing or stricture. There is no extrinsic compression. On placing patient supine and prone, there is a small hiatal hernia with mild gastroesophageal reflux. There is diffuse mucosal thickening involving the stomach but no focal ulceration or erosions seen. No intraluminal filling defect. The duodenal bulb and the sweep are unremarkable. There is a second segment duodenal moderate-sized diverticulum. FLUOROSCOPY TIME: 2.6 minutes. DOSE AREA PRODUCT: 52.686 uGy-m2 (microgray-meter squared). FL/FL upper GI series IMPRESSION: Small hiatal hernia with mild gastroesophageal reflux. Diffuse gastric fold thickening. Differential diagnosis includes gastritis, other inflammatory/infectious etiologies or malignancy. Recommend gastric biopsy.
== END 2022-12-24 10:11 | disposition home or self-care (01) ==
LOC: HO.XRAY 10:10
PROVIDERS: PCP Internal Medicine; Visit Provider Internal Medicine
DX: K31.89 Other diseases of stomach and duodenum (principal)
CPT/HCPCS: 74240

== ENCOUNTER 2023-01-02 10:47 | Day surgery (SDC) | payer MEDICARE, OTHER, SELFPAY ==
[2022-12-28 11:46] VITALS: BMI 26.6
--- NOTE | 2023-01-01 10:10 | P.CONAN_ITS ---
Documented by User: Anupama Blanchard NP 01/01/23 10:13 HPI - Anesthesia Eval Consult details Narrative: 67yo M for Upper Endoscopy Cardiac cleared s/p EGD and [place] 09/2022 with [facility] Active Problems Active Problems: All Active Problems (Updated 12/28/22 @ 11:44 by Birgit Sam RN) Dilation of thoracic aorta (Acute) Ascending aortic aneurysm (Acute) Postoperative abdominal hernia (Acute) Preop cardiovascular exam (Acute) Personal history of colonic polyps (Acute) Gastric wall thickening (Acute) Barretts esophagus (Acute) Colon cancer screening (Acute) Incisional hernia (Acute) CAD (coronary artery disease) (Acute) Personal history of nicotine dependence (Acute) Past Medical History Medical History Ascending aortic aneurysm Barretts esophagus CAD (coronary artery disease) Colon cancer screening COPD (chronic obstructive pulmonary disease) HTN (hypertension) Hyperlipidemia Incisional hernia 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 Mother Diabetes mellitus Myocardial infarction CVD (cardiovascular disease) Maternal Grandfather No problems noted. Maternal Grandmother No problems noted. Paternal Grandfather No problems noted. Paternal Grandmother History of heart attack Brother No problems noted. Brother No problems noted. Brother No problems noted. Brother No problems noted. Sister HTN (hypertension) Diabetes mellitus Crohn's disease Sister No problems noted. Son No problems noted. Daughter No problems noted. Family history of problems with anesthesia: No Surgical History Surgical History History of colonoscopy History of esophagogastroduodenoscopy (EGD) History of incisional hernia repair History of inguinal hernia History of microdiscectomy History of plastic surgery History of surgery Hx of cholecystectomy S/P triple vessel bypass History of Problems with Anesthesia: No Social History Social History Are you a primary hospice care consultant to a significant other at home: No Do you presently have visiting nurse or other home services: No Alcohol intake: current Alcohol intake frequency: a few times a week Alcohol type: beer Patient Tobacco Use Status: Current everyday Tobacco user Tobacco use type: Cigarette Cigarettes Per Day: 12 Years Smoked: 50+ Use of substances other than those prescribed or required for medical reasons: No Are you DNR?: No Advance Directives: No Advance Directives Information Provided: Yes Meds Allergies Allergy/AdvReac Type Severity Reaction Status Date / Time No Known Allergies Allergy Verified 01/02/23 11:34 [No Known Allergies*] Home Medications Medication Instructions Recorded Confirmed Last Taken Type pantoprazole 40 mg tablet,delayed 40 mg PO DAILY 07/26/21 12/28/22 10/18/22 06:45 History release tamsulosin 0.4 mg capsule 0.4 mg PO DAILY 07/26/21 12/28/22 Unknown History tiotropium bromide 1.25 2 puff inhalation DAILY 07/26/21 12/28/22 01/02/23 08:00 History mcg/actuation mist for inhalation (Spiriva Respimat) diclofenac sodium 1 % topical gel 2 g topical QID 09/12/22 12/28/22 Unknown H istory (Arthritis Pain (diclofenac)) ezetimibe 10 mg-rosuvastatin 10 mg 1 tab PO DAILY 09/12/22 12/28/22 Unknown History tablet fluticasone 500 mcg-salmeterol 50 1 inh inhalation BID 09/12/22 12/28/22 01/02/23 08:00 History mcg/dose blistr powdr for inhalation (Advair Diskus) Exam Exam Date and Time: January 01, 2023 1010 Height,Weight and Vital Signs: Height 5 ft 5 in Weight 72.575 kg Narrative Narrative: EKG 05/2022 Sinus bradycardia 58 beats per minute, incomplete right bundle-branch block, QTC 435 millisecond ECHO 01/2022 Conclusions: - Normal left ventricular size, thickness, and systolic function. The visually estimated ejection fraction is between 55-60%.? ? ? - E/E prime ratio is between 8 and 15 consistent with? indeterminate filling pressures. ? - Normal right ventricular cavity size.? There is borderline ? ? right ventricular systolic function. ? - Low global longitudinal strain.?? Assessment and Plan Final Anesthetic Review Family History of Problems with Anesthesia: No History of Problems with Anesthesia: No Documented by User: Morenita Turcios MD 01/02/23 12:22 [facility] Active Problems Active Problems: All Active Problems (Updated 12/28/22 @ 11:44 by Birgit Sam RN) Dilation of thoracic aorta (Acute) Ascending aortic aneurysm (Acute) Postoperative abdominal hernia (Acute) Preop cardiovascular exam (Acute) Personal history of colonic polyps (Acute) Gastric wall thickening (Acute) Barretts esophagus (Acute) Colon cancer screening (Acute) Incisional hernia (Acute) CAD (coronary artery disease) (Acute) Personal history of nicotine dependence (Acute) Smoker. 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 Mother Diabetes mellitus Myocardial infarction CVD (cardiovascular disease) Maternal Grandfather No problems noted. Maternal Grandmother No problems noted. Paternal Grandfather No problems noted. Paternal Grandmother History of heart attack Brother No problems noted. Brother No problems noted. Brother No problems noted. Brother No problems noted. Sister HTN (hypertension) Diabetes mellitus Crohn's disease Sister No problems noted. Son No problems noted. Daughter No problems noted. Surgical History Surgical History History of colonoscopy History of esophagogastroduodenoscopy (EGD) History of incisional hernia repair History of inguinal hernia History of microdiscectomy History of plastic surgery History of surgery Hx of cholecystectomy S/P triple vessel bypass Social History Social History Are you a primary hospice care consultant to a significant other at home: No Do you presently have visiting nurse or other home services: No Alcohol intake: current Alcohol intake frequency: a few times a week Alcohol type: beer Patient Tobacco Use Status: Current everyday Tobacco user Tobacco use type: Cigarette Cigarettes Per Day: 12 Years Smoked: 50+ Use of substances other than those prescribed or required for medical reasons: No Are you DNR?: No Advance Directives: No Advance Directives Information Provided: Yes Meds Allergies Allergy/AdvReac Type Severity Reaction Status Date / Time No Known Allergies Allergy Verified 01/02/23 11:34 [No Known Allergies*] Home Medications Medication Instructions Recorded Confirmed Last Taken Type pantoprazole 40 mg tablet,delayed 40 mg PO DAILY 07/26/21 12/28/22 10/18/22 06:45 History release tamsulosin 0.4 mg capsule 0.4 mg PO DAILY 07/26/21 12/28/22 Unknown History tiotropium bromide 1.25 2 puff inhalation DAILY 07/26/21 12/28/22 01/02/23 08:00 History mcg/actuation mist for inhalation (Spiriva Respimat) diclofenac sodium 1 % topical gel 2 g topical QID 09/12/22 12/28/22 Unknown History (Arthritis Pain (diclofenac)) ezetimibe 10 mg-rosuvastatin 10 mg 1 tab PO DAILY 09/12/22 12/28/22 Unknown History tablet fluticasone 500 mcg-salmeterol 50 1 inh inhalation BID 09/12/22 12/28/22 01/02/23 08:00 History mcg/dose blistr powdr for inhalation (Advair Diskus) Exam Height,Weight and Vital Signs: Height 5 ft 5 in Weight 72.575 kg Vital Signs Temp Pulse Resp BP Pulse Ox O2 Del Method 01/02/23 11:31 98.3 F 57 15 137/84 96 Room Air Airway Mallampati Class: II TM Dist: >3cm Neck ROM: Full Denture: Upper Loose/Missing/Broken Teeth: Yes (Partial dentures not in. Denies broken or loose teeth) Heart: RRR Lungs: CTAB Assessment and Plan Assessment Anesthesia Assessment: Anesthesia Plan Discussed and Chart Reviewed Final Anesthetic Review NPO: Yes ASA Class: III Final Preanesthetic Review: No Changes in Pt Med Stat, Meds/Allgs Chart Reviewed, Consent Obtained/Reviewed and Anes Risks/Benef Reviewed Patient Risk: Intermediate Procedure Risk: Low Assessment/Block/Sedation in SS: Assess/Block/Sedation-SS Anesthetic Plan Anesthetic Plan: MAC: Disposition: Standard PACU
[2023-01-02 11:31] VITALS: BP 137/84; PULSE 57; RESP 15; TEMP 36.8; O2SAT 96
[2023-01-02] MEDS: Lactated Ringers 1,000 ML 100 ML IVCONT (11:33)
--- NOTE | 2023-01-02 11:48 | MHC.SHP ---
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 Personal history of nicotine dependence Surgical History: History of colonoscopy History of endoscopy History of esophagogastroduodenoscopy (EGD) History of incisional hernia repair History of inguinal hernia History of microdiscectomy History of plastic surgery History of surgery Hx of cholecystectomy S/P triple vessel bypass Relevant Social History: None Present Medications: see Short Stay Collaborative assessment Allergies: Allergies Allergy/AdvReac Type Severity Reaction Status Date / Time No Known Allergies Allergy Verified 01/02/23 11:34 [No Known Allergies*] Review of Systems Review of Systems Comment: 10 point ROS negative Exam Exam Comment: Gen appear: No acute distress HEENT: no icterus Chest: No overt resp distress Abd: soft, nontender, nondistended Psych: Stable affect, answering questions appropriately Neuro: A/Ox3 noted to move all extremities spontaneously Ext: no peripheral edema Plan Diagnosis/Plan: Unchanged I have reviewed the history and physical and performed a pertinent physical examination on my patient. No changes have occurred unless specified. Time Spent With Patient Time: Total time managing care of this patient today ____ minutes.
--- NOTE | 2023-01-02 12:58 | P.OP_ITS ---
Operative Note Operative Note Date of Service: 01/02/23 Narrative: Procedure: Esophagogastroduodenoscopy Endoscopist: Nishi Art MD Indication: Gastric wall thickening Anesthesia Provider: Mariama Noland CRNA Anesthesia Type: MAC Instrument: Olympus [id number]-[id number] ?? EGD Procedure:?? The procedure, indications, preparation and potential complications were reviewed with the patient, who indicated understanding and gave written informed consent to proceed. A physical exam was performed. The endoscope was introduced through the mouth, and advanced to the second part of duodenum. The mucosa was carefully examined on slow withdrawal of the endoscope. The patient tolerated the procedure well. There were no immediate complications.? ? EGD Findings:? * Esophagus:? Normal mucosa noted in the entire esophagus. The Z line was at 35 and slightly irregular. 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 Hiatal hernia was noted with diaphragmatic pinch at 38 cm. * Stomach:? A few polyps were noted in the fundus. Diffuse thickening of gastric folds was noted in fundus and body. Under NBI, mucosa appeared atrophic especially along greater curvature. Using jumbo forceps mapping biopsies were obtained from the stomach as per Lisa protocol. * Duodenum:? Normal mucosa was noted in the whole of the examined duodenum. ? EGD Impressions:? * Irregular Z line (biopsy) * Hiatal hernia * Thickened gastric folds (biopsy) * Normal duodenum ?? Recommendations:?? * Follow biopsy results. Our office will call or send a letter with results within 7-10 days. * [place] [facility] [place] [facility] [place] full [place] biopsies vs EUS if these result nondiagnostic as well. * If H pylori +, patient will be prescribed eradication therapy followed by test of cure. * Avoid NSAIDs. Above has been reviewed with the patient. Relevant educational hand outs were provided at discharge.
[2023-01-02 13:02] VITALS: BP 99/56; PULSE 64; RESP 16; TEMP 36.8; O2SAT 97
[2023-01-02 13:17] VITALS: BP 95/59; PULSE 56; RESP 18; O2SAT 96
[2023-01-02 13:28] VITALS: BP 127/78; PULSE 58; RESP 18; TEMP 36.1; O2SAT 96
== END 2023-01-02 13:56 | disposition home or self-care (01) ==
PROVIDERS: PCP Internal Medicine; Visit Provider Internal Medicine
PROC: 0DJ08ZZ Inspection of Upper Intestinal Tract, Via Natural or Artificial Opening Endoscopic (ICD-10-PCS; CPT 43235; principal; 2023-01-02 12:20)
DX: K31.89 Other diseases of stomach and duodenum (principal); K22.70 Barrett's esophagus without dysplasia; K22.89 Other specified disease of esophagus; K31.7 Polyp of stomach and duodenum; K44.9 Diaphragmatic hernia without obstruction or gangrene; J44.9 Chronic obstructive pulmonary disease, unspecified; I25.10 Atherosclerotic heart disease of native coronary artery without angina pectoris; Z95.1 Presence of aortocoronary bypass graft; I71.21 Aneurysm of the ascending aorta, without rupture; I10 Essential (primary) hypertension; E78.5 Hyperlipidemia, unspecified; Z79.51 Long term (current) use of inhaled steroids; Z79.82 Long term (current) use of aspirin; Z79.899 Other long term (current) drug therapy; Z90.49 Acquired absence of other specified parts of digestive tract; F17.210 Nicotine dependence, cigarettes, uncomplicated
CPT/HCPCS: 43239; 88305; 88342; J2250

== ENCOUNTER → 2023-01-21 10:44 | Outpatient (BNVA) | payer MEDICARE, OTHER, SELFPAY | PROVIDERS: PCP Internal Medicine; Referring Provider Internal Medicine; Visit Provider Internal Medicine | DX: K31.89 Other diseases of stomach and duodenum (principal); K22.70 Barrett's esophagus without dysplasia; Z86.010 Personal history of colon polyps | CPT/HCPCS: 99212 ==

== ENCOUNTER → 2023-03-29 09:49 | Outpatient (BNVA) | payer MEDICARE, OTHER, SELFPAY | PROVIDERS: PCP Internal Medicine; Referring Provider Internal Medicine; Visit Provider Internal Medicine Cardiovascular Disease | DX: Z01.810 Encounter for preprocedural cardiovascular examination (principal); I25.10 Atherosclerotic heart disease of native coronary artery without angina pectoris; I71.20 Thoracic aortic aneurysm, without rupture, unspecified | CPT/HCPCS: 93005; 99212 ==

== ENCOUNTER 2023-09-30 09:38 | Outpatient (AMB) | payer MEDICARE, OTHER, SELFPAY ==
[2023-09-30 09:45] VITALS: BP 140/76; PULSE 70; BMI 27.9
--- NOTE | 2023-09-30 09:45 | A.OFFVIS_ITS ---
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 Accompanied by: Self / Same As Patient Allergies No Known Allergies [No Known Allergies*] Allergy (Verified 09/30/23 09:47) Medication List - Last Reconciled 09/30/23 by Rajesh Cason MD amlodipine 5 mg PO DAILY aspirin (Adult Low Dose Aspirin) 81 mg PO DAILY atorvastatin 40 mg PO DAILY clopidogrel (Plavix) 75 mg PO DAILY diclofenac sodium 1% (Arthritis Pain (diclofenac)) 2 grams topical QID ezetimibe 10 mg PO DAILY ezetimibe 10 mg PO DAILY finasteride 5 mg PO DAILY fluticasone propion-salmeterol 500-50 mcg/dose (Advair Diskus) 1 inh inhalation BID hydrochlorothiazide 25 mg PO DAILY lisinopril 20 mg PO DAILY metoprolol tartrate 25 mg PO BID pantoprazole 40 mg PO DAILY tamsulosin 0.4 mg PO DAILY tiotropium bromide 1.25 mcg/actuation (Spiriva Respimat) 2 puffs inhalation DAILY HPI HPI Comments History of Present Illness Details 68-year-old gentleman with known history of coronary disease s/p CABG. He has COPD and is an active smoker. 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 He had no CP before CABG and angio was performed for MANZANO. Taking meds regularly. 09/30/2023: He returns for follow-up. He is complaining of dyspnea with activities. Continues to smoke. He has been diagnosed with gastric wall thickening and will be undergoing endoscopy on October 16. He has been told that there is clearly inflammation in the wall of the stomach to. He is taking aspirin and Plavix. No bleeding issues. Blood pressure is elevated. Manual checked by myself was 150/80. He is taking amlodipine 5 mg daily, hydrochlorothiazide 25 mg daily. 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 Mother Diabetes mellitus Myocardial infarction CVD (cardiovascular disease) Maternal Grandfather No problems noted. Maternal Grandmother No problems noted. Paternal Grandfather No problems noted. Paternal Grandmother History of heart attack Brother No problems noted. Brother No problems noted. Brother No problems noted. Brother No problems noted. Sister HTN (hypertension) Diabetes mellitus Crohn's disease Sister No problems noted. Son No problems noted. Daughter No problems noted. Social History Are you a primary career services representative to a significant other at home: No Do you presently have visiting nurse or other home services: No Alcohol intake: current Alcohol intake frequency: a few times a week Alcohol type: beer Patient Tobacco Use Status: Current everyday Tobacco user Tobacco use type: Cigarette Cigarette Packs Per Day: 0.5 Cigarettes Per Day: 12 Years Smoked: 50 +/- Review of Systems Const Reports chills, Reports fatigue, Reports fever(s), Reports frequent falls, Reports weakness, Reports weight gain and Reports weight loss ENT Reports dizziness Card Reports chest pain, Reports leg edema, Reports lightheadedness, Reports palpitations, Reports dyspnea and Reports dyspnea on exertion Resp Reports cough, Reports dyspnea and Reports dyspnea on exertion GI Reports hematochezia Musc Reports abnormal gait, Reports muscle weakness, Reports numbness, Reports radiating pain into limb and Reports tingling Neuro Reports abnormal gait, Reports dizziness, Reports frequent falls, Reports numbness, Reports tingling and Reports weakness Endo Reports fatigue and Reports palpitations Physical Exam Vital Signs: Last Vital Signs Pulse 70 09/30/23 09:45 BP 140/76 H 09/30/23 09:45 BMI result Body Mass Index 27.9 GENERAL APPEARANCE: in no acute distress, pleasant. NECK: no carotid bruit, no jugular venous distention. SKIN: no suspicious lesions, warm and dry. HEART: no murmurs, regular rate and rhythm. LUNGS: clear to auscultation bilaterally. ABDOMEN: soft, nontender. EXTREMITIES: no edema. PERIPHERAL PULSES: equal. NEUROLOGIC: No gross deficits, AAO X 3 Assessment & Plan Assessment & Plan (1) Stable angina: Code(s): I20.89 - Other forms of angina pectoris (2) Essential hypertension: Code(s): I10 - Essential (primary) hypertension Plan Pleasant 68 year gentleman is here for follow-up. He is status post bypass surgery. He has stable angina. He has been on aspirin and Plavix. He has stomach issues with inflammation and gastric wall thickening. I have advised him to stop the aspirin and take Plavix only. His blood pressure is elevated. I have advised him to increase amlodipine to 5 mg twice a day. Smoking cessation. He will see us back in 4 months. Thank you for allowing me to participate in the care of your patient. Please feel free to contact me if you have any questions. Medications: Changed From amlodipine 5 mg PO DAILY 90 tabs 3RF To amlodipine 5 mg PO BID 120 tabs 4RF Discontinued aspirin (Adult Low Dose Aspirin) Discontinued Reason: Doctor's Order 81 mg PO DAILY 90 tabs 3RF Coding Level of Care Code Est Pt Level 4 (43011) Diagnoses Stable angina I20.89 Essential hypertension I10
== END 2023-09-30 10:17 | disposition home or self-care (01) ==
PROVIDERS: PCP Internal Medicine; Visit Provider Internal Medicine Cardiovascular Disease
DX: I20.89 Other forms of angina pectoris (principal); I10 Essential (primary) hypertension
CPT/HCPCS: 99214

== ENCOUNTER → 2023-09-30 09:38 | Outpatient (BNVA) | payer MEDICARE, OTHER, SELFPAY | PROVIDERS: PCP Internal Medicine; Visit Provider Internal Medicine Cardiovascular Disease | DX: I20.89 Other forms of angina pectoris (principal); I10 Essential (primary) hypertension; F17.210 Nicotine dependence, cigarettes, uncomplicated; Z95.1 Presence of aortocoronary bypass graft | CPT/HCPCS: 99212 ==

== ENCOUNTER 2023-12-18 10:42 | Outpatient (AMB) | payer MEDICARE, OTHER, SELFPAY ==
[2023-12-18 10:53] VITALS: BP 135/65; PULSE 65; BMI 27.8
--- NOTE | 2023-12-18 10:53 | A.OFFVIS_ITS ---
Intake Vital Signs 12/18/23 10:53 Height 5 ft 5 in Weight 167 lb BMI 27.8 BP 135/65 Blood Pressure Location Lt brachial Position Sitting Pulse 65 Pulse Source Monitor Intake Visit Reasons: 6 month fu Intake Note: Patient states he hasn't had any more stomach pain hes doing well besides his bloating in his stomach. No other GI concerns. Manager Branch Required: No Accompanied by: Self / Same As Patient Allergies No Known Allergies [No Known Allergies*] Allergy (Verified 12/18/23 10:58) HPI HPI Comments History of Present Illness Details This is a 67-year-old gentleman with past medical history of Leblanc's esophagus, as well as personal history of polyps, who is here for follow up. Initial visit 09/18/22: Patient currently reports no gastrointestinal issues to include abdominal pain, nausea, vomiting, changes in appetite or stool. Denies any blood in stool or unintentional weight loss. Last upper endoscopy and colonoscopy was 5 and half years ago (Dr. Degroot). More recently, he also underwent a screening CT chest due to smoking history that demonstrated gastric wall thickening. No family history of colon cancer. Sister has Crohn's disease. Patient continues to smoke half a pack a day, used to smoke much more than this in the past. EGD/colo 09/2022: * Irregular Z line (biopsy) * Hiatal hernia * Poor distensibility of stomach (biopsy) * Normal duodenum * Normal colon mucosa * Total of 7 polyps removed. * Diverticulosis * Internal hemorrhoids?? Path: A.? Stomach, biopsy:? Oxyntic mucosa within normal limits; no Helicobacter organisms seen. B.? GE junction, biopsy: - Superficial fragments of cardiac-type mucosa with mild chronic inactive inflammation and intestinal metaplasia; no dysplasia seen. - No squamous epithelium seen.? See comm ent. C.? Colon, transverse, polypectomies (2):? Fragments of tubular adenoma; negative for high-grade dysplasia or carcinoma. D.? Colon, ascending, polypectomies (2): - Tubular adenoma; negative for high-gra de dysplasia or carcinoma. - Fragments of sessile serrated polyp. E.? Colon, sigmoid #1, polypectomy:? Tubular adenoma; negative for high-grade dysplasia or carcinoma. F.? Colon, sigmoid #2, polypectomy:? Tissue did not survive processing. G.? Rectum, polypectomy:? Fragments of tubular adenoma; negative for high-grade dysplasia or carcinoma.? 10/31/22: A CT scan was ordered as stomach did not distend as well as expected and previous CT chest had commented on gastric wall thickening. This is scheduled for tomorrow. Otherwise no GI complaints. 01/02/23: EGD Impressions:? * Irregular Z line (biopsy) * Hiatal hernia * Thickened gastric folds (biopsy) * Normal duodenum Path: A.? Stomach, antrum greater curvature, biopsy:? Antral-type mucosa within normal limits; no Helicobacter organisms seen. B.? Stomach, antrum lesser curvature, biopsy:? Antral-type and oxyntic mucosa within normal limits; no Helicobacter organisms seen. C.? Stomach, incisura, biopsy:? Oxyntic mucosa with mild chronic inactive inflammation and proton pump inhibitor effect; no Helicobacter organisms seen. D.? Stomach, body lesser curvature,? Oxyntic mucosa within normal limits; no Helicobacter organisms seen. biopsy: E.? Stomach, body greater curvature, biopsy:? Oxyntic mucosa with mild chronic inactive inflammation; no Helicobacter organisms seen. F. ? Stomach, cardia, biopsy:? Oxyntic mucosa with mild chronic inactive inflammation; no Helicobacter organisms seen. G.? Irregular Z-line, biopsy: - Cardiac-type mucosa with moderate chronic active inflammation and multilayered epithelium; no fully developed intestinal metaplasia seen. - Active esophagitis (maximum eosinophil count 3 per high powered field). 01/21/23: Sx essentially unchanged. Has postprandial abd bloating otherwise no abd pain, N,V or diarrhea. Referral to [facility] was sent 01/10. Pt has not heard yet from the office. 12/18/23: Had been seen by GI at [facility] and underwent EGD/EUS in 05/2023 15 mm gastric wall thickening. Antral bx with focal atypia - LGD vs reactive atypica. Recommendation was made for interval eval. Pt reports hvaing another EGD in 09/2023 however we do not have these records. He recalls a 1 year interval for repeat EGD. Currently no sx. Cont on PPI for leblanc's. 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 Mother Diabetes mellitus Myocardial infarction CVD (cardiovascular disease) Maternal Grandfather No problems noted. Maternal Grandmother No problems noted. Paternal Grandfather No problems noted. Paternal Grandmother History of heart attack Brother No problems noted. Brother No problems noted. Brother No problems noted. Brother No problems noted. Sister HTN (hypertension) Diabetes mellitus Crohn's disease Sister No problems noted. Son No problems noted. Daughter No problems noted. Social History Are you a primary day care teacher to a significant other at home: No Do you presently have visiting nurse or other home services: No Alcohol intake: current Alcohol intake frequency: a few times a week Alcohol type: beer Patient Tobacco Use Status: Current everyday Tobacco user Tobacco use type: Cigarette Cigarette Packs Per Day: 0.5 Cigarettes Per Day: 12 Years Smoked: 50 +/- Review of Systems Const All systems reviewed & are unremarkable except as noted in HPI and below Physical Exam Vital Signs: Last Vital Signs Pulse 65 12/18/23 10:53 BP 135/65 12/18/23 10:53 BMI result Body Mass Index 27.8 NAD SPeaking in full sentences No overt resp effort Abd nondistended Assessment & Plan Assessment & Plan (1) Gastric wall thickening: Code(s): K31.89 - Other diseases of stomach and duodenum Plan: Focal atypia on antral bx from EGD/EUS in May 2023 done at [facility] [place], [place]. Pt underwent repeat exam in Sep but we do not have these records. Request was sent 11/22. Will fax again, pt also requested to mail any records he may have at home to us. (2) Barretts esophagus: Code(s): K22.70 - Leblanc's esophagus without dysplasia Plan: Discussed with the patient the Z-line was irregular to less than 1 cm, and technically does not need surveillance. Biopsies seemed to have been sampled from the stomach cardia. Will repeat an EGD as per interval suggested by GI at [facility], otherwise should be repeated anyway in 2024, when he will be due for colonoscopy as well (see below), and if no Leblanc's seen at that endoscopy either, can review cessation of further surveillance after discussion with the patient. Will send out tissue cypher as well. (3) Personal history of colonic polyps: Code(s): Z86.010 - Personal history of colonic polyps Plan: Seven polyps in total on most recent colonoscopy. Full only 6 could be processed, 1 sessile serrated polyp and remaining were tubular adenoma. Repeat colonoscopy due in 2024 will perform an EGD alongside, see above. Reminder set. Coding Level of Care Code Est Pt Level 4 (09653) Diagnoses Gastric wall thickening K31.89 Barretts esophagus K22.70 Personal history of colonic polyps Z86.010
== END 2023-12-18 11:37 | disposition home or self-care (01) ==
PROVIDERS: PCP Internal Medicine; Visit Provider Internal Medicine
DX: K31.89 Other diseases of stomach and duodenum (principal); K22.70 Barrett's esophagus without dysplasia; Z86.010 Personal history of colon polyps
CPT/HCPCS: 99214

== ENCOUNTER → 2023-12-18 10:42 | Outpatient (BNVA) | payer MEDICARE, OTHER, SELFPAY | PROVIDERS: PCP Internal Medicine; Visit Provider Internal Medicine | DX: K31.89 Other diseases of stomach and duodenum (principal); K22.70 Barrett's esophagus without dysplasia; Z86.010 Personal history of colon polyps | CPT/HCPCS: 99212 ==

== ENCOUNTER 2024-02-26 13:32 | Outpatient (AMB) | payer MEDICARE, OTHER, SELFPAY ==
[2024-02-26 13:50] VITALS: BP 130/80; PULSE 60; O2SAT 96; BMI 28.1
--- NOTE | 2024-02-26 13:50 | MHC.OFFVIS ---
Vital Signs 02/26/24 13:50 Height 5 ft 5 in Weight 168 lb 13.985 oz BMI 28.1 BP 130/80 Blood Pressure Location Lt brachial Position Sitting Pulse 60 Pulse Source Pulse Oximeter Pulse Oximetry (%) 96 Intake Visit Reasons: r/s 4 mos followup Intake Note: pt state that he its doing fine, with no symptoms. Merchandise Adjustment Clerk Required: No Accompanied by: Self / Same As Patient Allergies No Known Allergies [No Known Allergies*] Allergy (Verified 12/18/23 10:58) Medication List - Last Reconciled 02/26/24 by Rajesh Cason MD amlodipine 5 mg PO BID atorvastatin 40 mg PO DAILY clopidogrel (Plavix) 75 mg PO DAILY diclofenac sodium 1% (Arthritis Pain (diclofenac)) 2 grams topical QID ezetimibe 10 mg PO DAILY finasteride 5 mg PO DAILY fluticasone propion-salmeterol 500-50 mcg/dose (Advair Diskus) 1 inh inhalation BID hydrochlorothiazide 25 mg PO DAILY lisinopril 20 mg PO DAILY metoprolol tartrate 25 mg PO BID pantoprazole 40 mg PO DAILY tamsulosin 0.4 mg PO DAILY tiotropium bromide 1.25 mcg/actuation (Spiriva Respimat) 2 puffs inhalation DAILY HPI Comments Details: 68-year-old gentleman with known history of coronary disease s/p CABG. He has COPD and is an active smoker. 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 He had no CP before CABG and angio was performed for MANZANO. Taking meds regularly. 09/30/2023: He returns for follow-up. He is complaining of dyspnea with activities. Continues to smoke. He has been diagnosed with gastric wall thickening and will be undergoing endoscopy on October 16. He has been told that there is clearly inflammation in the wall of the stomach to. He is taking aspirin and Plavix. No bleeding issues. Blood pressure is elevated. Manual checked by myself was 150/80. He is taking amlodipine 5 mg daily, hydrochlorothiazide 25 mg daily. 02/26/2024: He returns for follow-up. On last visit he was advised to increase amlodipine to 5 mg twice a day. With this strategy his blood pressure has improved back to normal. He has checked it multiple times at home and has been stable. No chest pain or shortness of breath. He unfortunately continues to smoke half pack per day. We discussed about smoking cessation and that it is critical for him to stop smoking specially with background of advanced lung disease and coronary artery bypass surgery. 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 Mother Diabetes mellitus Myocardial infarction CVD (cardiovascular disease) Maternal Grandfather No problems noted. Maternal Grandmother No problems noted. Paternal Grandfather No problems noted. Paternal Grandmother History of heart attack Brother No problems noted. Brother No problems noted. Brother No problems noted. Brother No problems noted. Sister HTN (hypertension) Diabetes mellitus Crohn's disease Sister No problems noted. Son No problems noted. Daughter No problems noted. Social History Are you a primary human services care specialist to a significant other at home: No Do you presently have visiting nurse or other home services: No Alcohol intake: current Alcohol intake frequency: a few times a week Alcohol type: beer Patient Tobacco Use Status: Current everyday Tobacco user Tobacco use type: Cigarette Cigarette Packs Per Day: 0.5 Cigarettes Per Day: 12 Years Smoked: 50 +/- Review of Systems Const Denies chills, Denies fatigue, Denies fever(s), Denies frequent falls, Denies weakness, Denies weight gain and Denies weight loss ENT Denies dizziness Card Denies chest pain, Denies leg edema, Denies lightheadedness, Denies palpitations, Denies dyspnea and Denies dyspnea on exertion Resp Denies cough, Denies dyspnea and Denies dyspnea on exertion GI Denies hematochezia Musc Denies abnormal gait, Denies muscle weakness, Denies numbness, Denies radiating pain into limb and Denies tingling Neuro Denies abnormal gait, Denies dizziness, Denies frequent falls, Denies numbness, Denies tingling and Denies weakness Endo Denies fatigue and Denies palpitations Physical Exam Vital Signs: Last Vital Signs Pulse 60 02/26/24 13:50 BP 130/80 02/26/24 13:50 Pulse Ox 96 02/26/24 13:50 BMI result Body Mass Index 28.1 GENERAL APPEARANCE: in no acute distress, pleasant. NECK: no carotid bruit, no jugular venous distention. SKIN: no suspicious lesions, warm and dry. HEART: no murmurs, regular rate and rhythm. LUNGS: clear to auscultation bilaterally. ABDOMEN: soft, nontender. EXTREMITIES: no edema. PERIPHERAL PULSES: equal. NEUROLOGIC: No gross deficits, AAO X 3 Assessment & Plan Assessment & Plan (1) Essential hypertension: Code(s): I10 - Essential (primary) hypertension Category: Medical (2) Stable angina: Code(s): I20.89 - Other forms of angina pectoris Category: Medical (3) Ascending aortic aneurysm: Code(s): I71.2 - Thoracic aortic aneurysm, without rupture Category: Medical Plan Very pleasant 68 year gentleman who is here for follow-up. He has background history of coronary artery disease. He presented with dyspnea on exertion which led to further testing revealing multivessel disease for which she underwent bypass surgery. He has done well since then. No significant shortness of breath. He continues to smoke and we discussed about smoking cessation. He is seriously looking into that. He has mild dilation of ascending aorta [facility] echocardiography from 2021. At that time his ascending aorta was 4 cm in size. We will repeat echocardiography to reassess this. Continue same medications otherwise. Thank you for allowing me to participate in the care of your patient. Please feel free to contact me if you have any questions. Orders: Orders CA echo transthoracic complete Today I71.2 - Thoracic aortic aneurysm, without rupture Coding Level of Care Code Est Pt Level 4 (57635) Diagnoses Essential hypertension I10 Stable angina I20.89 Ascending aortic aneurysm I71.2
== END 2024-02-26 14:30 | disposition home or self-care (01) ==
PROVIDERS: PCP Internal Medicine; Visit Provider Internal Medicine Cardiovascular Disease
DX: I10 Essential (primary) hypertension (principal); I20.89 Other forms of angina pectoris; I71.20 Thoracic aortic aneurysm, without rupture, unspecified
CPT/HCPCS: 99214

== ENCOUNTER → 2024-02-26 13:32 | Outpatient (BNVA) | payer MEDICARE, OTHER, SELFPAY | PROVIDERS: PCP Internal Medicine; Visit Provider Internal Medicine Cardiovascular Disease | DX: I10 Essential (primary) hypertension (principal); I20.89 Other forms of angina pectoris; I71.20 Thoracic aortic aneurysm, without rupture, unspecified | CPT/HCPCS: 99212 ==

== ENCOUNTER → 2024-03-16 07:26 | Outpatient (REF) | payer MEDICARE, OTHER, SELFPAY ==
--- NOTE | 2024-03-16 07:28 | CA_ITS ---
Transthoracic Echocardiogram Patient (Last, First, Middle): Cullen Greer B Gender: Male Date of : 1955 Age: 68 Procedure Date: 03/16/2024 Procedure Type: Transthoracic Echocardiogram Location: OP Height: 165.1 cm Weight: 65.77 kg BSA: 1.73 m2 Heart Rate: 63 bpm BP: 132 / 70 mmHg Forest Fire Equipment Operator: SB Referring MD: Rajesh Cason MD Symptoms: I71.2 - Thoracic aortic aneurysm, without rupture Study Quality: Adequate ECG Rhythm: Sinus Conclusions: - Normal left ventricular size, thickness, systolic function, and wall motion. The visually estimated ejection fraction is between 60-65%. Abnormal diastolic function is noted. Spectral Doppler is indicative of an impaired relaxation filling pattern. Elevated filling pressures. - Mildly increased right ventricular cavity size. There is mildly decreased right ventricular systolic function. - There is mild dilatation of the ascending aorta measuring 4.20 cm. Findings Left Ventricle Normal left ventricular size, thickness, systolic function, and wall motion. The visually estimated ejection fraction is between 60-65%. Abnormal diastolic function is noted. Spectral Doppler is indicative of an impaired relaxation filling pattern. Elevated filling pressures. Right Ventricle Mildly increased right ventricular cavity size. There is mildly decreased right ventricular systolic function. Atria The left atrium is normal in size. The right atrium is normal in size. Aortic Valve Normal aortic valve structure and function. There is no aortic valve stenosis. There is no aortic valve regurgitation. Mitral Valve The mitral valve appears normal. There is no mitral valve regurgitation. There is no mitral valve stenosis. Pulmonic Valve The pulmonic valve was not well visualized. Tricuspid Valve Normal tricuspid valve structure. There is no tricuspid valve regurgitation. Normal right atrial pressure. There is no evidence of pulmonary hypertension. Great Vessels There is mild dilatation of the ascending aorta measuring 4.20 cm. The visualized portions of the pulmonary artery and branches are normal. Venous The inferior vena cava is normal in size and collapses greater than 50% with inspiration. Pericardium/Pleural There is no evidence of pericardial effusion. Prior Study Comparison Changes noted compared to prior study dated: 02/21/2022. EF 60-65%, Mild RV dilation and dysfunction. Measurements 2D Linear Measurements IVSd: 0.90 0.6-0.9/0.6-1.0 cm LVIDd: 4.61 3.9-5.3/4.2-5.9 cm LVIDd Index: 2.66 2.4-3.2/2.2-3.1 cm/m2 LVIDs: 3.19 2.0-3.6 cm LVPWd: 0.73 0.7-1.1 cm LA Diam: 3.70 2.7-3.8/3.0-4.0 cm LAIDs Index: 2.14 1.5-2.3 cm/m2 LV Mass: 149.71 67-162/88-224 g LV Mass Index: 86.54 43-95/49-115 g/m2 LVOT Diam: 2.10 3.0+(-)1.3 cm 2D Systolic Function EF 4C: 60.00 >55% EF 2C: 51.70 >55% EF BiP: 56.50 >55% Mitral Valve MV Pk E: 0.99 MV PK A: 0.70 MV Decel Time: 247.00 E/A: 1.40 E'Lateral: 7.07 E'Medial: 5.55 E/E' Med: 17.90 E/E' Lat: 14.10 PHT: 72.00 MVA PHT: 3.06 Decel [place]: 4.02 Aortic Valve AoV Pk Atul: 1.47 AoV Pk Grad: 9.00 DEBRA: 3.11 LVOT LVOT Pk Atul: 1.32 LVOT Mn Atul: 0.80 LVOT VTI: 0.26 LVOT Pk Grad: 7.00 LVOT Mn Grad: 3.00 LVOT Diam: 2.10 LVOT Area: 3.46 Diastolic Function MV Pk E: 0.99 MV Pk A: 0.70 E/A: 1.40 E'Medial: 5.55 E/E' Med: 17.90 E' Laterial: 7.07 E/E' Lat: 14.10 Right Ventricle TAPSE (mm): 12.90 TVS' Atul: 9.68 Tricuspid Valve TR Pk Atul: 2.33 TR Pk Grad: 22.00 RA Press: 3.00 RVSP: 25.00 Great Vessels Aorta Sinus of Valsalva: 3.60 2.0-3.5 cm Ao Asc: 4.20 2.1-3.4 cm Pulmonary Veins Pulm Vein S/D 1.20 Pulmonary Valve PV Pk Atul: 1.13 Peak PV Grad: 5.00 Updated in Other Vendor System with Status of Final Rajesh Cason MD electronically signed on 03/17/2024 10:02:19 PM with status of Final
== END ==
LOC: HO.CARD 07:26
PROVIDERS: PCP Internal Medicine; Visit Provider Internal Medicine Cardiovascular Disease
DX: I71.20 Thoracic aortic aneurysm, without rupture, unspecified (principal)
CPT/HCPCS: 93306

== ENCOUNTER → 2024-03-16 07:28 | Outpatient (BNV) | payer MEDICARE, OTHER, SELFPAY | PROVIDERS: PCP Internal Medicine; Visit Provider Internal Medicine Cardiovascular Disease | DX: I71.21 Aneurysm of the ascending aorta, without rupture (principal); R93.1 Abnormal findings on diagnostic imaging of heart and coronary circulation | CPT/HCPCS: 93306 ==

== ENCOUNTER 2024-03-20 11:21 | Outpatient (AMB) | payer MEDICARE, OTHER, SELFPAY ==
--- NOTE | 2024-03-20 11:35 | AM.OFFWIN_ITS ---
Intake Vital Signs 03/20/24 11:37 Height 5 ft 5 in Weight 168 lb BMI 28.0 BP 130/82 Blood Pressure Location Rt brachial Position Sitting Pulse 65 Pulse Source Pulse Oximeter Temp 97.8 F Temp Source Oral Pulse Oximetry (%) 92 Oxygen Delivery Method Room Air Intake Visit Reasons: EST/copd exacerbation (lobby) Intake Note: pt is here for congestion, shortness of breath with exacerbation hx of COPD Patient Tobacco Use Status: Current everyday Tobacco user Allergies No Known Allergies [No Known Allergies*] Allergy (Verified 03/20/24 11:35) Do you need a note to return to daycare/school/sports/work: No HPI EST/copd exacerbation (lobby) HPI Details 68 year old male patient with PMH signif icant for COPD, HTN, CAD presents today with 5 day history of worsening productive cough and shortness of breath. He denies any fever or chills. He states SaO2 is typically in the mid 90s, however is 92 at this time on RA. He has been using Advair at home with little relief. 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 Mother Diabetes mellitus Myocardial infarction CVD (cardiovascular disease) Maternal Grandfather No problems noted. Maternal Grandmother No problems noted. Paternal Grandfather No problems noted. Paternal Grandmother History of heart attack Brother No problems noted. Brother No problems noted. Brother No problems noted. Brother No problems noted. Sister HTN (hypertension) Diabetes mellitus Crohn's disease Sister No problems noted. Son No problems noted. Daughter No problems noted. Social History Are you a primary transitional care manager to a significant other at home: No Do you presently have visiting nurse or other home services: No Alcohol intake: current Alcohol intake frequency: a few times a week Alcohol type: beer Patient Tobacco Use Status: Current everyday Tobacco user Tobacco use type: Cigarette Cigarette Packs Per Day: 0.5 Cigarettes Per Day: 12 Years Smoked: 50 +/- Review of Systems Const All systems reviewed & are unremarkable except as noted in HPI and below Physical Exam Vital Signs: Last Vital Signs Temp 97.8 F 03/20/24 11:37 Pulse 65 03/20/24 11:37 BP 130/82 03/20/24 11:37 Pulse Ox 92 03/20/24 11:37 Oxygen Delivery Method Room Air 03/20/24 11:37 BMI result Body Mass Index 28.0 Const General: cooperative Nutritional Appearance: average body habitus HEENT Head: Yes normal to inspection Ears: hearing grossly normal bilaterally Face and sinus: Yes normal facial exam Throat: Yes posterior oropharynx normal Neck Neck: Yes no lymphadenopathy Resp Effort & Inspection: Actively coughing Quality: productive Auscultation: rhonchi upper bilaterally and wheezes upper bilaterally Cardio Rate: regular rate Rhythm: regular rhythm Heart sounds: S1 normal heart sound present and S2 normal heart sound present Skin General skin exam: no rashes or lesions noted Extrem General: Yes capillary refill normal and Yes no clubbing, cyanosis or edema Psych Appearance: grossly normal Mental Status: mental status grossly normal Speech and movement: Normal speech and movement present Office Procedures Nebulizer Treatment Nebulizer Treatment 66071-[id number]/MDI RX initial, or Nebulizer Subsequent Treatment Office Meds ipratropium 0.5 mg-albuterol 3 mg (2.5 mg base)/3 mL nebulization soln Performing Provider: CARMELITA Banks Performing Location: [facility] Administered by: Rashida Culp RN on 03/20/24 12:39 Dose Route Admin Location Dispensed Lot Number Expiration Date NDC [employer] 3 mL inhalation 3 mL [id number] 12/25/25 16401-204-55 [employer] Assessment & Plan Assessment & Plan (1) Shortness of breath: Code(s): R06.02 - Shortness of breath Plan: DuoNeb treatment provided in the office today with good effect. Rhonchi and wheezing significantly reduced following treatment, and SaO2 sat up to 94%. I am going to start patient on course of prednisone and also an antibiotic. We reviewed indication, use, possible side effects of medications. XR report: Mild peribronchial cuffing can be seen in the setting of bronchitis. COVID/flu/RSV swab obtained and patient aware he will be notified with results once these are available. Patient was strongly encouraged to go to the emergency department if he does not improve with treatment, or if symptoms worsen/do symptoms such as fever, chills, worsening shortness of breath, or reduced SaO2 at home occur. Patient verbalizes understanding and agrees to plan. (2) COPD (chronic obstructive pulmonary disease): Code(s): J44.9 - Chronic obstructive pulmonary disease, unspecified Qualifiers: COPD type: COPD with acute exacerbation Qualified Code(s): J44.1 - Chronic obstructive pulmonary disease with (acute) exacerbation Plan: As above. Orders: Orders XR chest 2V Today J44.1 - Chronic obstructive pulmonary disease with (acute) exacerbation, R06.02 - Shortness of breath SARS-CoV2/FLU/RSV Today R06.02 - Shortness of breath AMB Nebulizer Treatment Today J44.1 - Chronic obstructive pulmonary disease with (acute) exacerbation, R06.02 - Shortness of breath Medications: New amoxicillin-pot clavulanate 875-125 mg 1 tab PO BID 14 tabs 0RF 7 days J44.1 - Chronic obstructive pulmonary disease with (acute) exacerbation, R06.02 - Shortness of breath prednisone 20 mg PO BID 10 tabs 0RF 5 days J44.1 - Chronic obstructive pulmonary disease with (acute) exacerbation, R06.02 - Shortness of breath Coding Level of Care Code Est Pt Level 4 (55188) Diagnoses Shortness of breath R06.02 Chronic obstructive pulmonary disease with acute exacerbation J44.1 COPD type: COPD with acute exacerbation CPT Codes Nebulizer Treatment - Nebulizer Treatment, initial or subsequent: 03367- Nebulizer/MDI RX initial, or Nebulizer Subsequent Treatment ([id number])
[2024-03-20 11:37] VITALS: BP 130/82; PULSE 65; TEMP 36.6; O2SAT 92; BMI 28.0
== END 2024-03-20 12:58 | disposition home or self-care (01) ==
PROVIDERS: PCP Internal Medicine; Visit Provider Nurse Practitioner Family
DX: R06.02 Shortness of breath (principal); J44.1 Chronic obstructive pulmonary disease with (acute) exacerbation
CPT/HCPCS: 94640; 99214; J7620

== ENCOUNTER 2024-03-20 12:03 | Outpatient (REF) | payer MEDICARE, OTHER, SELFPAY | END 2024-03-20 12:04 | disposition home or self-care (01) | LOC: HO.LAB 12:03 | PROVIDERS: Visit Provider Nurse Practitioner Family | DX: Z13.89 Encounter for screening for other disorder (principal) ==

== ENCOUNTER 2024-03-20 12:06 | Outpatient (REF) | payer MEDICARE, OTHER, SELFPAY ==
--- NOTE | ~2024-03-20 | XR_ITS ---
EXAMINATION: XR CHEST CLINICAL INFORMATION: COPD with acute exacerbation. COMPARISON: 06/26/2022 and 06/11/2019 TECHNIQUE: 2 views of the chest were obtained. FINDINGS: The lungs are well expanded. No focal consolidation. Mild peribronchial cuffing. No pleural effusion. Cardiac silhouette is unchanged. Surgical clips project over the right upper quadrant. XR/XR chest 2V IMPRESSION: Mild peribronchial cuffing can be seen in the setting of bronchitis.
[2024-03-20 14:03] LABS: Influenza A PCR NEGATIVE (Negative); Influenza B PCR NEGATIVE (Negative); Resp Syncy Virus RNA Qual PCR NEGATIVE (Negative); SARS COV2 PCR INHOUSE NEGATIVE (Negative)
== END 2024-03-20 12:07 | disposition home or self-care (01) ==
LOC: HO.HMGCX 12:06
PROVIDERS: Visit Provider Nurse Practitioner Family
DX: J44.1 Chronic obstructive pulmonary disease with (acute) exacerbation (principal); R06.02 Shortness of breath; Z11.52 Encounter for screening for COVID-19
CPT/HCPCS: 0241U; 71046

== ENCOUNTER 2024-08-31 09:10 | Outpatient (AMB) | payer MEDICARE, OTHER, SELFPAY ==
[2024-08-31 09:16] VITALS: BP 124/60; PULSE 62; BMI 27.7
--- NOTE | 2024-08-31 09:16 | A.OFFVIS_ITS ---
Vital Signs 08/31/24 09:16 Height 5 ft 5 in Weight 166 lb 3.657 oz BMI 27.7 BP 124/60 Blood Pressure Location Lt brachial Position Sitting Pulse 62 Pulse Source Monitor Intake Visit Reasons: 6 mth fu Intake Note: 6 mth f/up Optical Glass Sawyer Required: No Accompanied by: Self / Same As Patient Allergies No Known Allergies [No Known Allergies*] Allergy (Verified 03/20/24 11:35) Medication List - Last Reconciled 08/31/24 by Rajesh Cason MD amlodipine 5 mg PO BID atorvastatin 40 mg PO DAILY clopidogrel (Plavix) 75 mg PO DAILY diclofenac sodium 1% (Arthritis Pain (diclofenac)) 2 grams topical QID ezetimibe 10 mg PO DAILY finasteride 5 mg PO DAILY fluticasone propion-salmeterol 500-50 mcg/dose (Advair Diskus) 1 inh inhalation BID hydrochlorothiazide 25 mg PO DAILY lisinopril 20 mg PO DAILY metoprolol tartrate 25 mg PO BID pantoprazole 40 mg PO DAILY tamsulosin 0.4 mg PO DAILY tiotropium bromide 1.25 mcg/actuation (Spiriva Respimat) 2 puffs inhalation DAILY HPI Comments Details: 69-year-old gentleman with known history of coronary disease s/p CABG. He has COPD and is an active smoker. 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 He had no CP before CABG and angio was performed for MANZANO. Taking meds regularly. 09/30/2023: He returns for follow-up. He is complaining of dyspnea with activities. Continues to smoke. He has been diagnosed with gastric wall thickening and will be undergoing endoscopy on October 16. He has been told that there is clearly inflammation in the wall of the stomach to. He is taking aspirin and Plavix. No bleeding issues. Blood pressure is elevated. Manual checked by myself was 150/80. He is taking amlodipine 5 mg daily, hydrochlorothiazide 25 mg daily. 02/26/2024: He returns for follow-up. On last visit he was advised to increase amlodipine to 5 mg twice a day. With this strategy his blood pressure has improved back to normal. He has checked it multiple times at home and has been stable. No chest pain or shortness of breath. He unfortunately continues to smoke half pack per day. We discussed about smoking cessation and that it is critical for him to stop smoking specially with background of advanced lung disease and coronary artery bypass surgery. 08/31/2024: He is here for follow-up. On last visit we decided to repeat echocardiography which was done in 03/16/2024 showing normal LV function without any wall motion abnormalities with elevated filling pressures. Mild RV dilation with mild RV dysfunction and mild dilation of ascending aorta at 4.2 cm. He has been doing well. No significant shortness of breath with activities. He has been raking leaves and has been active in the backyard. No concerning chest discomfort. Blood pressure is well controlled. He is smoking up to 6 cigarettes per day but is actively trying to quit. He is saying he may need repeat endoscopy by October. 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 Mother Diabetes mellitus Myocardial infarction CVD (cardiovascular disease) Maternal Grandfather No problems noted. Maternal Grandmother No problems noted. Paternal Grandfather No problems noted. Paternal Grandmother History of heart attack Brother No problems noted. Brother No problems noted. Brother No problems noted. Brother No problems noted. Sister HTN (hypertension) Diabetes mellitus Crohn's disease Sister No problems noted. Son No problems noted. Daughter No problems noted. Social History Are you a primary manager care management to a significant other at home: No Do you presently have visiting nurse or other home services: No Alcohol intake: current Alcohol intake frequency: a few times a week Alcohol type: beer Patient Tobacco Use Status: Current everyday Tobacco user Tobacco use type: Cigarette Cigarette Packs Per Day: 0.5 Cigarettes Per Day: 12 Years Smoked: 50 +/- Review of Systems Const Denies chills, Denies fatigue, Denies fever(s), Denies frequent falls, Denies weakness, Denies weight gain and Denies weight loss ENT Denies dizziness Card Denies chest pain, Denies leg edema, Denies lightheadedness, Denies palpitations, Denies dyspnea and Denies dyspnea on exertion Resp Denies cough, Denies dyspnea and Denies dyspnea on exertion GI Denies hematochezia Musc Denies abnormal gait, Denies muscle weakness, Denies numbness, Denies radiating pain into limb and Denies tingling Neuro Denies abnormal gait, Denies dizziness, Denies frequent falls, Denies numbness, Denies tingling and Denies weakness Endo Denies fatigue and Denies palpitations Physical Exam Vital Signs: BMI result Body Mass Index 27.7 GENERAL APPEARANCE: in no acute distress, pleasant. NECK: no carotid bruit, no jugular venous distention. SKIN: no suspicious lesions, warm and dry. HEART: no murmurs, regular rate and rhythm. LUNGS: clear to auscultation bilaterally. ABDOMEN: soft, nontender. EXTREMITIES: no edema. PERIPHERAL PULSES: equal. NEUROLOGIC: No gross deficits, AAO X 3 Office Procedures EKG Details: Sinus rhythm 62 beats per minute, rightward axis, nonspecific ST changes, QTC 436 milliseconds. [id number], Complete Assessment & Plan Assessment & Plan (1) Essential hypertension: Code(s): I10 - Essential (primary) hypertension Category: Medical (2) Stable angina: Code(s): I20.89 - Other forms of angina pectoris Category: Medical (3) Dilation of thoracic aorta: Code(s): I77.810 - Thoracic aortic ectasia Category: Medical Plan 69-year-old gentleman who is here for follow-up. He has known history of coronary artery disease with previous bypass surgery. He did not have any chest discomfort and mostly shortness of breath was his anginal equivalent. Overall has been doing well since surgery. Continues to smoke and we had discussion again and he is actively trying to quit. Blood pressure is well controlled currently. He is on Plavix monotherapy. He will need endoscopy either at [place] or in [facility]. He is intermediate risk for perioperative complications. Plavix can be held for few days before endoscopy if biopsies plan. Otherwise Plavix should not be interrupted. He will see us back in 6 months. Thank you for allowing me to participate in the care of your patient. Please feel free to contact me if you have any questions. Coding Level of Care Code Est Pt Level 4 (94732) Diagnoses Essential hypertension I10 Stable angina I20.89 Dilation of thoracic aorta I77.810 CPT Codes EKG - CPT: 70972-[id number], Complete ([id number])
== END 2024-08-31 10:17 | disposition home or self-care (01) ==
LOC: HO.HCS 09:10
PROVIDERS: PCP Internal Medicine; Visit Provider Internal Medicine Cardiovascular Disease
DX: I10 Essential (primary) hypertension (principal); I20.89 Other forms of angina pectoris; I77.810 Thoracic aortic ectasia
CPT/HCPCS: 93010; 99214

== ENCOUNTER → 2024-08-31 09:10 | Outpatient (BNVA) | payer MEDICARE, OTHER, SELFPAY | PROVIDERS: PCP Internal Medicine; Visit Provider Internal Medicine Cardiovascular Disease | DX: I20.89 Other forms of angina pectoris (principal); I77.810 Thoracic aortic ectasia; I10 Essential (primary) hypertension | CPT/HCPCS: 93005; 99212 ==

== ENCOUNTER 2024-11-19 10:23 | Day surgery (SDC) | payer MEDICARE, OTHER, SELFPAY ==
--- NOTE | 2024-11-18 12:26 | P.CONAN_ITS ---
Documented by User: Anupama Blanchard NP 11/18/24 12:31 HPI - Anesthesia Eval Consult details Narrative: 69yo M for Upper Endoscopy Follows [facility] Cardiology. Stable at 08/2024 office visit and optimized for EGD per note. 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 Mother Diabetes mellitus Myocardial infarction CVD (cardiovascular disease) Maternal Grandfather No problems noted. Maternal Grandmother No problems noted. Paternal Grandfather No problems noted. Paternal Grandmother History of heart attack Brother No problems noted. Brother No problems noted. Brother No problems noted. Brother No problems noted. Sister HTN (hypertension) Diabetes mellitus Crohn's disease Sister No problems noted. Son No problems noted. Daughter No problems noted. Family history of problems with anesthesia: No Surgical History Surgical History History of incisional hernia repair History of plastic surgery S/P triple vessel bypass History of microdiscectomy History of esophagogastroduodenoscopy (EGD) History of colonoscopy History of inguinal hernia Hx of cholecystectomy History of surgery History of Problems with Anesthesia: No Social History Social History Are you a primary plant health care technician to a significant other at home: No Do you presently have visiting nurse or other home services: No Alcohol intake: current Alcohol intake frequency: does not drink Alcohol type: beer Patient Tobacco Use Status: Current everyday Tobacco user Tobacco use type: Cigarette Cigarette Packs Per Day: 0.5 Cigarettes Per Day: 12 Years Smoked: 50 +/- Are you DNR?: No Advance Directives: No Advance Directives Information Provided: Yes Meds Allergies Allergy/AdvReac Type Severity Reaction Status Date / Time No Known Allergies Allergy Verified 03/20/24 11:35 [No Known Allergies*] Home Medications ?Medication ?Instructions ?Recorded ?Confirmed ?Last Taken ?Type pantoprazole 40 mg tablet,delayed 40 mg PO DAILY 07/26/21 08/31/24 11/19/24 History release tamsulosin 0.4 mg capsule 0.4 mg PO DAILY 07/26/21 08/31/24 Unknown History tiotropium bromide 1.25 2 puff inhalation DAILY 07/26/21 08/31/24 01/02/23 08:00 History mcg/actuation mist for inhalation (Spiriva Respimat) diclofenac sodium 1 % topical gel 2 g topical QID 09/12/22 08/31/24 Unknown History (Arthritis Pain (diclofenac)) fluticasone 500 mcg-salmeterol 50 1 inh inhalation BID 09/12/22 08/31/24 01/02/23 08:00 History mcg/dose blistr powdr for inhalation (Advair Diskus) atorvastatin 40 mg tablet 40 mg PO DAILY 03/29/23 08/31/24 Unknown History metoprolol tartrate 25 mg tablet 25 mg PO BID 03/29/23 08/31/24 11/19/24 History ezetimibe 10 mg tablet 10 mg PO DAILY 09/30/23 08/31/24 Unknown History amoxicillin 500 mg tablet 500 mg PO TID 11/19/24 11/19/24 11/18/24 History Exam Narrative Narrative: EKG 08/2024 Details: Sinus rhythm 62 beats per minute, rightward axis, nonspecific ST changes, QTC 436 milliseconds. ECHO 02/2024 Conclusions: - Normal left ventricular size, thickness, systolic function, and wall motion. The visually estimated ejection fraction is between 60-65%. Abnormal diastolic function is noted. Spectral Doppler is indicative of an impaired relaxation filling pattern. Elevated filling pressures. - Mildly increased right ventricular cavity size. There is mildly decreased right ventricular systolic function. - There is mild dilatation of the ascending aorta measuring 4.20 cm. Assessment and Plan Assessment Anesthesia Assessment: Chart Reviewed Final Anesthetic Review Family History of Problems with Anesthesia: No History of Problems with Anesthesia: No Documented by User: Morenita Turcios MD 11/19/24 13:52 HPI - Anesthesia Eval Consult details Narrative: 69yo M for Upper Endoscopy Follows [facility] Cardiology. Stable at 08/2024 office visit and optimized for EGD per note. CAD s/p CABG x 3 2018 on plavix COPD/acitve smoker Patient had a procedure in mouth a few days ago. Worried about stitches being dislodged with ETT placement. Explained that the plan for anesthesia did not include intubation. Dr Art informed and aware. Bite block tested pre-op to ensure that be encroaching on stitches. PMFSH Active Problems Active Problems: All Active Problems Essential hypertension (Acute) Stable angina (Acute). 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 Mother Diabetes mellitus Myocardial infarction CVD (cardiovascular disease) Maternal Grandfather No problems noted. Maternal Grandmother No problems noted. Paternal Grandfather No problems noted. Paternal Grandmother History of heart attack Brother No problems noted. Brother No problems noted. Brother No problems noted. Brother No problems noted. Sister HTN (hypertension) Diabetes mellitus Crohn's disease Sister No problems noted. Son No problems noted. Daughter No problems noted. Family history of problems with anesthesia: No Surgical History Surgical History History of incisional hernia repair History of plastic surgery S/P triple vessel bypass History of microdiscectomy History of esophagogastroduodenoscopy (EGD) History of colonoscopy History of inguinal hernia Hx of cholecystectomy History of surgery History of Problems with Anesthesia: No Social History Social History Are you a primary plant health care technician to a significant other at home: No Do you presently have visiting nurse or other home services: No Alcohol intake: current Alcohol intake frequency: does not drink Alcohol type: beer Patient Tobacco Use Status: Current everyday Tobacco user Tobacco use type: Cigarette Cigarette Packs Per Day: 0.5 Cigarettes Per Day: 12 Years Smoked: 50 +/- Are you DNR?: No Advance Directives: No Advance Directives Information Provided: Yes Meds Allergies Allergy/AdvReac Type Severity Reaction Status Date / Time No Known Allergies Allergy Verified 03/20/24 11:35 [No Known Allergies*] Home Medications ?Medication ?Instructions ?Recorded ?Confirmed ?Last Taken ?Type pantoprazole 40 mg tablet,delayed 40 mg PO DAILY 07/26/21 08/31/24 11/19/24 History release tamsulosin 0.4 mg capsule 0.4 mg PO DAILY 07/26/21 08/31/24 Unknown History tiotropium bromide 1.25 2 puff inhalation DAILY 07/26/21 08/31/24 01/02/23 08:00 History mcg/actuation mist for inhalation (Spiriva Respimat) diclofenac sodium 1 % topical gel 2 g topical QID 09/12/22 08/31/24 Unknown History (Arthritis Pain (diclofenac)) fluticasone 500 mcg-salmeterol 50 1 inh inhalation BID 09/12/22 08/31/24 01/02/23 08:00 History mcg/dose blistr powdr for inhalation (Advair Diskus) atorvastatin 40 mg tablet 40 mg PO DAILY 03/29/23 08/31/24 Unknown History metoprolol tartrate 25 mg tablet 25 mg PO BID 03/29/23 08/31/24 11/19/24 History ezetimibe 10 mg tablet 10 mg PO DAILY 09/30/23 08/31/24 Unknown History amoxicillin 500 mg tablet 500 mg PO TID 11/19/24 11/19/24 11/18/24 History Exam Height,Weight and Vital Signs: Height 5 ft 5 in Weight 77.111 kg Vital Signs Temp Pulse Resp BP Pulse Ox O2 Del Method 97.8 F 67 18 135/67 97 Room Air 11/19/24 10:49 11/19/24 10:49 11/19/24 10:49 11/19/24 10:49 11/19/24 10:49 11/19/24 10:49 Airway Mallampati Class: II TM Dist: >3cm Neck ROM: Full Partial: Upper Loose/Missing/Broken Teeth: Yes (Denies broken, loose teeth) Heart: RRR Lungs: CTAB Assessment and Plan Assessment Anesthesia Assessment: Anesthesia Plan Discussed and Chart Reviewed Final Anesthetic Review Family History of Problems with Anesthesia: No History of Problems with Anesthesia: No NPO: Yes ASA Class: III Final Preanesthetic Review: No Changes in Pt Med Stat, Meds/Allgs Chart Reviewed, Consent Obtained/Reviewed and Anes Risks/Benef Reviewed Patient Risk: Intermediate Procedure Risk: Low Assessment/Block/Sedation in SS: Assess/Block/Sedation-SS Anesthetic Plan Anesthetic Plan: TIVA Disposition: Standard PACU
[2024-11-19 10:43] VITALS: BMI 28.3
[2024-11-19 10:49] VITALS: BP 135/67; PULSE 67; RESP 18; TEMP 36.6; O2SAT 97
--- NOTE | 2024-11-19 10:59 | PC.NURSE ---
Addendum entered by Nicki Millan RN 11/19/24 11:02: post not dental implant Original Note: pt had dental surgery implant to right lower one tooth right side swelling lower noted on abx
--- NOTE | 2024-11-19 11:09 | MHC.SHP ---
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 Personal history of nicotine dependence Surgical History History of incisional hernia repair History of plastic surgery S/P triple vessel bypass History of microdiscectomy History of esophagogastroduodenoscopy (EGD) History of colonoscopy History of inguinal hernia Hx of cholecystectomy History of surgery Allergies: Allergies Allergy/AdvReac Type Severity Reaction Status Date / Time No Known Allergies Allergy Verified 03/20/24 11:35 [No Known Allergies*] Review of Systems Review of Systems Comment: Ten point ROS negative Exam Exam Comment: Gen appear: No acute distress HEENT: no icterus Chest: No overt resp distress Abd: soft, nontender, nondistended Psych: Stable affect, answering questions appropriately Neuro: A/Ox3 noted to move all extremities spontaneously Ext: no peripheral edema Plan Diagnosis/Plan: Unchanged I have reviewed the history and physical and performed a pertinent physical examination on my patient. No changes have occurred unless specified. Time Spent With Patient Time: Total time managing care of this patient today ____ minutes.
[2024-11-19] MEDS: Lactated Ringers 1,000 ML 100 ML IVCONT (11:47)
--- NOTE | 2024-11-19 12:21 | P.OP_ITS ---
Operative Note Operative Note Date of Service: 11/19/24 Narrative: Procedure: Esophagogastroduodenoscopy Endoscopist: Nishi Art MD Indication: Gastric wall thickening, gastric atypia Anesthesia Provider: Mariama Noland CRNA Anesthesia Type: MAC Instrument: Olympus [id number] ?? EGD Procedure:?? The procedure, indications, preparation and potential complications were reviewed with the patient, who indicated understanding and gave written informed consent to proceed. A physical exam was performed. The endoscope was introduced through the mouth, and advanced to the second part of duodenum. The mucosa was carefully examined on slow withdrawal of the endoscope. The patient tolerated the procedure well. There were no immediate complications.? ? EGD Findings:? * Esophagus:? Normal mucosa noted in the entire esophagus. The Z line was at 36 and slightly irregular. 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 Hiatal hernia was noted with diaphragmatic pinch at 38 cm. * Stomach:? A few polyps were noted in the fundus. Diffuse thickening of gastric folds was noted in fundus and body. Cold forceps mapping biopsies were obtained from the stomach as per Lisa protocol. * Duodenum:? Normal mucosa was noted in the whole of the examined duodenum. ? EGD Impressions:? * Irregular Z line (biopsy) * Hiatal hernia * Thickened gastric folds (biopsy) * Normal duodenum ?? Recommendations:?? * Follow biopsy results. Our office will call or send a letter with results within 7-10 days. * Avoid NSAIDs. * If no atypicia/dysplasia noted on these biopsies, will discuss spacing EGD to 3 years. Above has been reviewed with the patient.
[2024-11-19 12:26] VITALS: BP 104/73; PULSE 73; RESP 16; TEMP 36.6; O2SAT 97
[2024-11-19 12:41] VITALS: BP 92/63; PULSE 73; RESP 15; O2SAT 97
[2024-11-19 12:56] VITALS: BP 99/54; PULSE 65; RESP 15; O2SAT 97
[2024-11-19 13:11] VITALS: BP 121/64; PULSE 53; RESP 20; TEMP 36.8; O2SAT 95
== END 2024-11-19 13:53 | disposition home or self-care (01) ==
PROVIDERS: PCP Internal Medicine; Visit Provider Internal Medicine
PROC: 0DJ08ZZ Inspection of Upper Intestinal Tract, Via Natural or Artificial Opening Endoscopic (ICD-10-PCS; CPT 43235; principal; 2024-11-19 13:00)
DX: K22.70 Barrett's esophagus without dysplasia (principal); K31.89 Other diseases of stomach and duodenum; K31.7 Polyp of stomach and duodenum; K22.9 Disease of esophagus, unspecified; K20.80 Other esophagitis without bleeding; K44.9 Diaphragmatic hernia without obstruction or gangrene; I10 Essential (primary) hypertension; E78.5 Hyperlipidemia, unspecified; J44.9 Chronic obstructive pulmonary disease, unspecified; F17.210 Nicotine dependence, cigarettes, uncomplicated; Z90.49 Acquired absence of other specified parts of digestive tract; Z86.0101 Personal history of adenomatous and serrated colon polyps; Z79.02 Long term (current) use of antithrombotics/antiplatelets; Z79.899 Other long term (current) drug therapy
CPT/HCPCS: 43239; 88300; 88305; 88313; 88342; J2003; J2250; J2704

== ENCOUNTER → 2024-11-19 10:23 | Outpatient (BNV) | payer MEDICARE, OTHER, SELFPAY | PROVIDERS: PCP Internal Medicine; Visit Provider Internal Medicine | DX: K31.89 Other diseases of stomach and duodenum (principal); K31.A0 Gastric intestinal metaplasia, unspecified; K31.7 Polyp of stomach and duodenum | CPT/HCPCS: 43239 ==

== ENCOUNTER 2025-05-10 14:23 | Outpatient (AMB) | payer MEDICARE, OTHER, SELFPAY ==
[2025-05-10 15:11] VITALS: BP 114/70; PULSE 69; BMI 26.9
--- NOTE | 2025-05-10 15:11 | MHC.OFFVIS ---
Vital Signs 05/10/25 15:11 Height 5 ft 5 in Weight 161 lb 13.109 oz BMI 26.9 BP 114/70 Blood Pressure Location Lt brachial Position Sitting Pulse 69 Pulse Source Monitor Intake Visit Reasons: r/s 6 mth f/up Intake Note: 6 mth fup Information Assurance Manager Required: No Accompanied by: Self / Same As Patient Allergies No Known Allergies (No Known Allergies*) Allergy (Verified 03/20/24 11:35) Medication List - Last Reconciled 05/10/25 by Rajesh Cason MD amlodipine 5 mg PO BID amoxicillin 500 mg PO TID atorvastatin 40 mg PO DAILY clopidogrel (Plavix) 75 mg PO DAILY diclofenac sodium 1% (Arthritis Pain (diclofenac)) 2 grams topical QID ezetimibe 10 mg PO DAILY finasteride 5 mg PO DAILY fluconazole 400 mg (2 x 200 mg) PO DAILY 14 days fluticasone propion-salmeterol 500-50 mcg/dose (Advair Diskus) 1 inh inhalation BID hydrochlorothiazide 25 mg PO DAILY lisinopril 20 mg PO DAILY metoprolol tartrate 25 mg PO BID pantoprazole 40 mg PO DAILY peg 3350-electrolytes 236-22.74-6.74 -5.86 gram (Golytely) 240 mL PO Q10M tamsulosin 0.4 mg PO DAILY tiotropium bromide 1.25 mcg/actuation (Spiriva Respimat) 2 puffs inhalation DAILY HPI Comments Details: 70-year-old gentleman with known history of coronary disease s/p CABG. He has COPD and is an active smoker. 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 He had no CP before CABG and angio was performed for MANZANO. Taking meds regularly. 09/30/2023: He returns for follow-up. He is complaining of dyspnea with activities. Continues to smoke. He has been diagnosed with gastric wall thickening and will be undergoing endoscopy on October 16. He has been told that there is clearly inflammation in the wall of the stomach to. He is taking aspirin and Plavix. No bleeding issues. Blood pressure is elevated. Manual checked by myself was 150/80. He is taking amlodipine 5 mg daily, hydrochlorothiazide 25 mg daily. 02/26/2024: He returns for follow-up. On last visit he was advised to increase amlodipine to 5 mg twice a day. With this strategy his blood pressure has improved back to normal. He has checked it multiple times at home and has been stable. No chest pain or shortness of breath. He unfortunately continues to smoke half pack per day. We discussed about smoking cessation and that it is critical for him to stop smoking specially with background of advanced lung disease and coronary artery bypass surgery. 08/31/2024: He is here for follow-up. On last visit we decided to repeat echocardiography which was done in 03/16/2024 showing normal LV function without any wall motion abnormalities with elevated filling pressures. Mild RV dilation with mild RV dysfunction and mild dilation of ascending aorta at 4.2 cm. He has been doing well. No significant shortness of breath with activities. He has been raking leaves and has been active in the backyard. No concerning chest discomfort. Blood pressure is well controlled. He is smoking up to 6 cigarettes per day but is actively trying to quit. He is saying he may need repeat endoscopy by October. 05/10/2025: Recent episode of pneumonia with significant cough. He said while coughing he passed out 3 times. He was with his [id number] who is a nurse who told him that this could be syncope. He is saying that he was treated with antibiotics and his cough has improved and he has not had any further episodes since then. He is saying that he was on the [place] and it was hot and humid. 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 Mother Diabetes mellitus Myocardial infarction CVD (cardiovascular disease) Maternal Grandfather No problems noted. Maternal Grandmother No problems noted. Paternal Grandfather No problems noted. Paternal Grandmother History of heart attack Brother No problems noted. Brother No problems noted. Brother No problems noted. Brother No problems noted. Sister HTN (hypertension) Diabetes mellitus Crohn's disease Sister No problems noted. Son No problems noted. Daughter No problems noted. Social History (Reviewed 05/10/25 @ 15:12 by Elina Bush [facility]) Are you a primary hearing care practitioner to a significant other at home: No Do you presently have visiting nurse or other home services: No Alcohol intake: current Alcohol intake frequency: does not drink Alcohol type: beer Patient Tobacco Use Status: Current everyday Tobacco user Tobacco use type: Cigarette Cigarette Packs Per Day: 0.5 Cigarettes Per Day: 12 Years Smoked: 50 +/- Physical Exam Vital Signs: Last Vital Signs Pulse 69 05/10/25 15:11 BP 114/70 05/10/25 15:11 BMI result Body Mass Index 26.9 GENERAL APPEARANCE: in no acute distress, pleasant. NECK: no carotid bruit, no jugular venous distention. SKIN: no suspicious lesions, warm and dry. HEART: no murmurs, regular rate and rhythm. LUNGS: clear to auscultation bilaterally. ABDOMEN: soft, nontender. EXTREMITIES: no edema. PERIPHERAL PULSES: equal. NEUROLOGIC: No gross deficits, AAO X 3 Office Procedures EKG Details: Sinus rhythm 9 beats per minute, normal axis, incomplete right bundle-branch block, QTC 411 milliseconds. 17829-[id number], Complete Assessment & Plan Assessment & Plan (1) Essential hypertension: Code(s): I10 - Essential (primary) hypertension Category: Medical (2) Stable angina: Code(s): I20.89 - Other forms of angina pectoris Category: Medical (3) Dilation of thoracic aorta: Code(s): I77.810 - Thoracic aortic ectasia Category: Medical Plan [age] year gentleman who is here for follow-up. He has background history of coronary disease. He has been stable from coronary disease point of view. Recent episode of pneumonia with significant cough and while coughing he passed out 3 times. Clinical story appears to be consistent with situational syncope. He was on the [place] and was hot and humid and he probably was more dehydrated than he thought. He was advised to increase his hydration. He has improved already after treatment of pneumonia. I have advised him to avoid heat as much as possible and be careful if he has any dizziness because similar episodes can happen without a trigger sometimes. Otherwise stable and will see us back in 6 months. Thank you for allowing me to participate in the care of your patient. Please feel free to contact me if you have any questions. Coding Level of Care Code Est Pt Level 4 (60824) Diagnoses Essential hypertension I10 Stable angina I20.89 Dilation of thoracic aorta I77.810 CPT Codes EKG - CPT: 21886-[id number], Complete ([id number])
--- OUTSIDE RECORDS SUMMARY | 2025-05-10 15:46 | XMS_ITS | Clinical Summary ---
Author Organization [address] [facility] Address [address] [place] [address] Phone Care Team Providers Care Heat Treat Furnace Operator Name Role Phone LissetteparkerNasrin Primary Care Provider [phone] Allergies No known active allergies Medications hydroCHLOROthia zide (HYDRODIURIL) 25 mg tablet Take 1 tablet (25 mg total) by mouth 1 (one) time each day. 4 Active amLODIPine (NORVASC) 5 mg tablet Take 1 tablet (5 mg total) by mouth 2 (two) times a day. 9 Active clopidogreL (PLAVIX) 75 mg tablet Take 1 tablet (75 mg total) by mouth 1 (one) time each day. 9 Active atorvastatin (LIPITOR) 80 mg tablet Take 40 mg by mouth 1 (one) time each day. 9 Active diclofenac (VOLTAREN) 1 % topical gel Apply topically 2 (two) times a day. Active ezetimibe (ZETIA) 10 mg tablet Take 1 tablet (10 mg total) by mouth 1 (one) time each day. Active finasteride (PROSCAR) 5 mg tablet Take 1 tablet (5 mg total) by mouth 1 (one) time each day. Do not crush, chew, or split. Active lisinopriL (PRINIVIL,ZESTR IL) 20 mg tablet Take 1 tablet (20 mg total) by mouth 1 (one) time each day. 4 Active metoprolol succinate (TOPROL-XL) 25 mg 24 hr tablet Take 1 tablet (25 mg total) by mouth 2 (two) times a day. Active pantoprazole (PROTONIX) 40 mg EC tablet Take 1 tablet (40 mg total) by mouth 1 (one) time each day before breakfast. 0 Active tiotropium (SPIRIVA) 18 mcg per inhalation capsule Place 1 capsule (18 mcg total) into inhaler and inhale daily. Active Active Problems Problem Noted Date Diagnosed Date Gastroesophageal reflux disease without esophagi tis 02/17/2025 Bhakta esophagus determined by biopsy 5 History of adenomatous polyp of colon 02/17/2025 Esophageal candidiasis (CMS/HCC V24, CMS/HCC V28 ) 02/17/2025 Encounters Date Type Department Care Team Description 04/26/2025 Telephone Gastroenterology [facility] [address] [facility] [address] [facility] [address] [place] [address] aSrita Moreland LPN Anticoagulation (Colonoscopy on 05/27/[address] Arellano) 02/17/2025 1:40 PM EDT Consult Gastroenterology - [address] [facility] [address] [facility] [address] [place] [address] Dada Arellano MD Gastroesophageal reflux disease without esophagitis (Primary Dx); History of adenomatous polyp of colon; Bhakat esophagus determined by biopsy; Esophageal candidiasis (CMS/HCC V24, CMS/HCC V28); Coronary artery disease involving koi heart without angina pectoris, unspecified vessel or lesion type 02/17/2025 Telephone Gastroenterology - [address] [place] [address] [address] [place] [address] Dada Arellano MD from Last 3 Months Surgical History Surgery Date Site/Laterality Comments LUMBAR SPINE SURGERY PROCEDURE:LUMBAR SPINE SURGERY UPPER GASTROINTESTINAL ENDOSCOPY PROCEDURE:UPPER GASTROINTESTINAL ENDOSCOPY SHOULDER SURGERY Left PROCEDURE:SHOULDER SURGERY HERNIA REPAIR PROCEDURE:INGUINAL HERNIA REPAIR;COMMENT:x2 CORONARY ARTERY BYPASS GRAFT 05/01/2019 PROCEDURE:CORONARY ARTERY BYPASS GRAFT;COMMENT:x3 CHOLECYSTECTOMY PROCEDURE:CHOLECYSTECTOMY LUMBAR DISCECTOMY 09/25/2019 Posterior PROCEDURE:LUMBAR DISCECTOMY;COMMENT:Procedure: LEFT L4-5 MIS DISCECTOMY LUMBAR AND DECOMPRESSION; Surgeon: Eb Mayfield MD; Location: [facility] MAIN OPERATING ROOM; Service: Spine; Laterality: Posterior; Medical History Medical History Date Comments Arteriosclerosis of both carotid arteries DX:Arteriosclerosis of both carotid arteries Coronary artery disease DX:Coron iron artery disease Hyperlipidemia DX:Hyperlipidemi a Hypertension DX:Hypertension COPD (chronic obstructive pu lmonary disease) ([facility] V24, [facility] V28) DX:COPD (chronic o bstructive pulmonary disease) ([facility]);COMMENT:mild GERD (gastroesophageal reflux disease) DX:GERD (gastroesophageal reflux disease) Social History Tobacco Use Types Packs/Day Years Used Date Smoking Tobacco: Every Day Cigarettes Started: 05/2010 Smokeless Tobacco: Current Tobacco Cessation:Ready to Q uit: Not Asked; Counseling Given: Not Answered Alcohol Use Standard Drinks/Week Comments Yes 6 (1 standard drink = 0.6 oz pur e alcohol) Sex and Gender Information Value Date Recorded Sex Assigned at Not on file Legal Sex Male 12:30 PM EST Gender Identity Not on file Sexual Orientation Not on file Obstetrics History Last Filed Vital Signs Vital Sign Reading Time Taken Comments Blood Pressure - - Pulse - - Temperature - - Respiratory Rate - - Oxygen Saturation - - Inhaled Oxygen Concentration - - Weight 74.8 kg (165 lb) 02/17/2025 1:47 PM EDT Height 165.1 cm (5' 5 ) 02/17/2025 1:47 PM EDT Body Mass Index 27.46 02/17/2025 1:47 PM EDT Plan of Treatment Upcoming Encounters Date Type Department Care Team ([facility] st Contact Info) Description 05/27/2025 8:00 AM EDT Hospital Encounter [facility] Endoscopy [address] [place] [id number] Dada Arellano MD [address] [facility] [address] [place] [address] Health Maintenance Due Date Last Done Comments IPV Vaccines (2 of 3 - Adult catch-up series) 01/23/1987 12/26/1986 RSV Immunization Adult Patients (1 - Risk 60-74 years 1-dose series) 2015 Zoster Vaccines (3 of 3) 12/30/2020 11/04/2020, 08/28 Abdominal Aortic Aneurysm (AAA) Screen 12/31/2024 Cholesterol Screening (Lipid Panel) 12/31/2024 Colorectal Cancer Screening: Colonoscopy 12/31/2024 Depression Screening 12/31/2024 Falls Risk Assessment 12/31/2024 Hepatitis C Screening 12/31/2024 Lung Cancer Screening (Low Dose CT) 12/31/2024 Medicare Annual Wellness Visit 12/31/2024 Social Influencers of Health Screening 12/31/2024 Hypertension/CHF/CAD Annual BMP Blood Test 02/18/2025 COVID-19 Vaccine ( season) 2025 09/26/2024, 07/26/2022, 02/15/2022, Additional history exists Influenza Vaccine (#1) 2025 , 08/17/2024, 07/22/2023, Additional history exists DTaP,Tdap,and Td Vaccines (7 - Td or Tdap) 05/31/2031 05/31/2021, 08/09/2012, 10/28/2010, Additional history exists MMR Vaccines Aged Out 03/08/1999 No longer eligi ble based on patient's age to complete this topic Meningococcal ACWY Vaccine Aged Out 03/08/1999 N o longer eligible based on patient's age to complete this topic Hepatitis A Vaccines Aged Out 01/21/2000, 03/08/19 99 No longer eligible based on patient's age to complete this topic Pneumococcal Vaccine: 50+ Years Completed 07/04/2022, 01/10/2018, 07/24/2011 HIB Vaccines Aged Out No longer eligi ble based on patient's age to complete this topic HPV Vaccines Aged Out No longer eligi ble based on patient's age to complete this topic Hepatitis B Vaccines Aged Out No long er eligible based on patient's age to complete this topic Meningococcal B Vaccine Aged Out No l onger eligible based on patient's age to complete this topic RSV Immunization Patients Under 20 months Aged Out No longer eligible based on patient's age to complete this topic Varicella Vaccines Aged Out No longer eligible based on patient's age to complete this topic Medical Devices Implanted Type Area Manager Fine Device Identifier Shelf Expiration Date Model / Serial / Lot Sponge Surgiflo 8ml Hemostatic Matrix Absorbable Latex Free - [id number] Implanted:Qty: 1 on 09/25/2019 by Eb Mayfield MD Implants N/A: Spine Lumbar [employer] 10/27/2020 [id number] / / [id number] Insurance MEDICARE [facility] Care Teams Heat Treat Furnace Operator Relationship Specialty Start Date End Date Nasrin Molina DO Bakari Aburto [address] [id number] PCP - General Internal Medicine 12/30/24
--- OUTSIDE RECORDS SUMMARY | 2025-05-10 15:46 | XMS_ITS | Clinical Summary ---
Author Organization [facility] Address [address] [place] [address] Care Team Providers Care Air Hoist Operator Name Role Phone Haider Green MD Primary Care Provider [phone] Allergies No known active allergies Medications Medication Sig Dispensed Refills Start Date End Date Status carvedilol (COREG) 3.125 MG tablet Take 3.125 mg by mouth 2 (two) times a day. 2 02/23/2019 Active amLODIPine (NORVASC) tablet 5 mg Take 5 mg by mouth daily. 5 02/05/2019 Active hydroCHLOROthiazide (MICROZIDE) 12.5 MG capsule Take 12.5 mg by mouth every morning. 3 07/30/2019 Active metoprolol tartrate (LOPRESSOR) 25 MG tablet Take by mouth 2 (two) times a day. 0 Active finasteride (PROSCAR) 5 MG tablet Take 5 mg by mouth daily. 0 Active aspirin 81 MG tablet Take 81 mg by mouth daily. 0 Active atorvastatin (LIPITOR) tablet 80 mg Take 80 mg by mouth daily. 0 Active tamsulosin (FLOMAX) 0.4 MG CAPS Take 0.4 mg by mouth daily. 0 Active Tiotropium [place] Monohydrate 2.5 MCG/ACT AERS Inhale into the lungs daily. 0 Active RANITIDINE HCL PO Take by mouth daily. 0 Active clopidogrel (PLAVIX) 75 MG tablet Take 1 tablet (75 mg total) by mouth daily. 30 tablet 0 09/28/2019 Active oxyCODONE-acetaminoph en (PERCOCET) 5-325 MG per tablet Take 2 tablets by mouth every 4 (four) hours as needed for pain. 25 tablet 0 09/25/2019 Active Active Problems No known active problems Social History Tobacco Use Types Packs/Day Years Used Date Smoking Tobacco: Every Day Cigarettes 0.5 47 Smokeless Tobacco: Current Tobacco Cessation:Counseling Given: Yes Comments:states he has cut back and used to smoke more Alcohol Use Standard Drinks/Week Comments Yes 0 (1 standard drink = 0.6 oz pur e alcohol) rare Sex and Gender Information Value Date Recorded Sex Assigned at Male 09/21/2019 4:00 PM EST Gender Identity Male 07/01/2020 10:06 AM EDT Sexual Orientation Not on file Last Filed Vital Signs Vital Sign Reading Time Taken Comments Blood Pressure 120/78 10/23/2019 8:35 AM EST Pulse 66 09/25/2019 3:15 PM EST Temperature 36.4 C (97.6 F) 07/01/2020 9:27 AM EDT Respiratory Rate 10 09/25/2019 2:45 PM EST Oxygen Saturation 96% 09/25/2019 3:15 PM EST Inhaled Oxygen Concentration - - Weight 72.6 kg (160 lb) 07/01/2020 9:27 AM EDT Height 165.1 cm (5' 5 ) 09/25/2019 9:58 AM EST Body Mass Index 26.63 09/25/2019 9:58 AM EST Plan of Treatment Health Maintenance Due Date Last Done Comments Hepatitis C Screening 1955 COVID-19 Vaccine (#1) 1955 Pneumococcal Vaccine (1 of 2 - PCV) 1961 Depression Screening 1967 Preventative Health Evaluation 1973 DTap / Tdap / Td (1 - Tdap) 1974 Colon Cancer Screening (Colonoscopy) 2000 Shingrix-Zoster Vaccine (1 of 2) 2005 Abdominal Aortic Aneurysm (AAA) Screening 2020 Fall Risk Assessment 2020 Tobacco Cessation Counseling 09/07/2020 09/07/2019 BMI Counseling 07/01/2021 07/01/2020, 09/28, 09/04/2019, Additional history exists Influenza Vaccine (#1) 2025 RSV Adult > 60+ Yrs or (1 - 1-dose 75+ series) 2030 Hepatitis B Vaccines Aged Out No long er eligible based on patient's age to complete this topic RSV Ped < 20 months Aged Out No longe r eligible based on patient's age to complete this topic Medical Devices Implanted Type Area Manager Chinese Device Identifier Shelf Expiration Date Model / Serial / Lot Sponge Surgiflo 8ml Hemostatic Matrix Absorbable Latex [facility] - [id number] - [id number] Implanted:Qty: 1 on 09/25/2019 by Eb Mayfield MD [facility] Hemostatic Agent Posterior : Spine Lumbar [facility] 10/27/2020 [id number] / / [id number] Care Teams Air Hoist Operator Relationship Specialty Start Date End Date Haider Green MD [address] [place] [id number] PCP - General Internal Medicine 08/15/18
== END 2025-05-10 15:36 | disposition home or self-care (01) ==
LOC: HO.HCS 14:23
PROVIDERS: PCP Internal Medicine; Visit Provider Internal Medicine Cardiovascular Disease
DX: I10 Essential (primary) hypertension (principal); I20.89 Other forms of angina pectoris; I77.810 Thoracic aortic ectasia
CPT/HCPCS: 93010; 99214

== ENCOUNTER → 2025-05-10 14:23 | Outpatient (BNVA) | payer MEDICARE, OTHER, SELFPAY | PROVIDERS: PCP Internal Medicine; Visit Provider Internal Medicine Cardiovascular Disease | DX: I77.810 Thoracic aortic ectasia (principal); I20.89 Other forms of angina pectoris; I10 Essential (primary) hypertension; I51.7 Cardiomegaly; I45.19 Other right bundle-branch block; R94.31 Abnormal electrocardiogram [ECG] [EKG] | CPT/HCPCS: 93005; 99212 ==

== ENCOUNTER 2025-10-12 13:14 | Emergency (ER) | payer MEDICARE, OTHER, SELFPAY ==
--- NOTE | ~2025-10-12 | XR_ITS ---
EXAMINATION: XR CHEST CLINICAL INFORMATION: SOB COMPARISON: 03/20/2024. TECHNIQUE: 2 views of the chest were obtained. FINDINGS: The cardiac, hilar, and mediastinal contours are normal. Mild aortic mural calcification. Lungs are mildly hyperaerated with flattened hemidiaphragms, suggesting COPD. There is no discrete consolidation. There is no pneumothorax or pleural effusion. There is no focal osseous or soft tissue abnormality. There are cholecystectomy clips. XR/XR chest 2V IMPRESSION: COPD. No active superimposed disease. Electronically signed by: Mike Ryder MD 10/12/2025 04:24 PM EST
--- NOTE | 2025-10-12 13:20 | ECG_ITS ---
Test Reason : chest pain Blood Pressure : */* mmHG Vent. Rate : 77 BPM Atrial Rate : 77 BPM P-R Int : 140 ms QRS Dur : 102 ms QT Int : 398 ms P-R-T Axes : 84 1 88 degrees QTcB Int : 450 ms Normal sinus rhythm Possible Left atrial enlargement Incomplete right bundle branch block Nonspecific ST and T wave abnormality Abnormal ECG When compared with ECG of 25-May-2017 08:50, ST now depressed in Anterior leads Nonspecific T wave abnormality now evident in Lateral leads Referred By: Parth Pinon Electronically Signed By: Rajesh Cason
[2025-10-12 15:26] VITALS: BP 128/58; PULSE 86; RESP 18; TEMP 36.6; O2SAT 98; BMI 27.5
--- NOTE | 2025-10-12 15:33 | ED.CHESTPAIN ---
HPI - Chest Pain General Chief Complaint: Chest Pain Stated Complaint: chest and back pain sent from md office Time Seen by Provider: 10/12/25 16:37 History of Present Illness ED Provider: Flora DORMAN narrative: The patient is a 70-year-old male who had cardiac bypass surgery 5 years ago. His bypass surgery was complicated by postoperative wound infections and he ended up having a fair amount of revision surgery including a pectoral flap. Since his surgery he has had problems with pains in his right upper back. These has been worse over the last few months and possibly more severe over the last few weeks. Two weeks ago he contacted his primary care doctor's office to make an appointment to discuss these pains that he has been having for a long time. He went to his PCP today and was advised to come to the emergency room for evaluation of his pains. He has had no fever, sweats, chills. No cough or sputum. He says that there are certain positions that he can lie and that exacerbate his pains. They are certain arm positions that can alleviate his pains. Overall he feels that the pains are getting worse rather than better. He describes an episode 2 years ago when he was a crank or Winch mechanism with his boat trailer when he had an exacerbation of pain in his chest. He has had no pain or swelling in his legs. No abdominal pain, nausea, vomiting. Related Data Home Medications ?Medication ?Instructions ?Recorded ?Confirmed pantoprazole 40 mg tablet,delayed 40 mg PO DAILY 07/26/21 05/10/25 release tamsulosin 0.4 mg capsule 0.4 mg PO DAILY 07/26/21 05/10/25 tiotropium bromide 1.25 2 puff inhalation DAILY 07/26/21 05/10/25 mcg/actuation mist for inhalation (Spiriva Respimat) diclofenac sodium 1 % topical gel 2 g topical QID 09/12/22 05/10/25 (Arthritis Pain (diclofenac)) fluticasone 500 mcg-salmeterol 50 1 inh inhalation BID 09/12/22 05/10/25 mcg/dose blistr powdr for inhalation (Advair Diskus) atorvastatin 40 mg tablet 40 mg PO DAILY 03/29/23 05/10/25 metoprolol tartrate 25 mg tablet 25 mg PO BID 06/02/23 07/14/25 ezetimibe 10 mg tablet 10 mg PO DAILY 09/30/23 05/10/25 amoxicillin 500 mg tablet 500 mg PO TID 11/19/24 05/10/25 Previous Rx's ?Medication ?Instructions ?Recorded finasteride 5 mg tablet 5 mg PO DAILY #90 tabs 08/21/22 hydrochlorothiazide 25 mg tablet 25 mg PO DAILY #90 tabs 08/21/22 lisinopril 20 mg tablet 20 mg PO DAILY #90 tabs 08/21/22 clopidogrel 75 mg tablet (Plavix) 75 mg PO DAILY #90 tabs 08/23/22 amlodipine 5 mg tablet 5 mg PO BID #120 tabs 09/30/23 peg 3350-electrolytes 236 240 ml PO Q10M colonoscopy #4,000 10/16/24 gram-22.74 gram-6.74 gram-5.86 mL gram solution (Golytely) fluconazole 200 mg tablet 400 mg (2 x 200 mg) PO DAILY 14 11/27/24 days #28 tabs Allergies Allergy/AdvReac Type Severity Reaction Status Date / Time No Known Allergies (No Known Allergy Verified 10/12/25 15:28 Allergies*) Review of Systems Review of Systems: Yes all other systems are reviewed and are negative [facility] Past Medical History Medical History 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 Mother Diabetes mellitus Myocardial infarction CVD (cardiovascular disease) Maternal Grandfather No problems noted. Maternal Grandmother No problems noted. Paternal Grandfather No problems noted. Paternal Grandmother History of heart attack Brother No problems noted. Brother No problems noted. Brother No problems noted. Brother No problems noted. Sister HTN (hypertension) Diabetes mellitus Crohn's disease Sister No problems noted. Son No problems noted. Daughter No problems noted. Social History Social History Are you a primary hearing healthcare practitioner to a significant other at home: No Do you presently have visiting nurse or other home services: No Alcohol intake: current Alcohol intake frequency: does not drink Alcohol type: beer Patient Tobacco Use Status: Current everyday Tobacco user Tobacco use type: Cigarette Cigarette Packs Per Day: 0.5 Cigarettes Per Day: 12 Years Smoked: 50 +/- Advance Directives: No Advance Directives Information Provided: Yes Do you have a plan to hurt others: No Plan Physical Exam Vital Signs: Vital Signs: Last Vital Signs Temp 98.0 F 10/12/25 17:23 Pulse 64 10/12/25 17:23 Resp 18 10/12/25 17:23 BP 140/67 H 10/12/25 17:23 Pulse Ox 98 10/12/25 17:23 O2 Del Method Room Air 10/12/25 17:23 BMI result Body Mass Index 27.5 Const: Other: The patient is a 70-year-old man who was awake and alert, pleasant cooperative. He does not appear acutely ill. He looks well. Orientation/consciousness: patient oriented x3 HEENT: Other: The face is symmetrical. ?Mucous membranes moist. Eyes: Other: Pupils are round equal, conjunctivae are clear, extraocular movements intact Neck: Neck: Yes normal visual inspection, Yes full ROM and Yes no JVD Chest: Other: The patient has an abnormally appearing chest wall in the region of the right pectoral area where he had apparently had surgery on his right pectoralis muscle. He does not have any significant anterior chest wall tenderness or instability. On the posterior chest the patient has significant tenderness between his right scapula and the midline of the spine. Palpation in this region seems to reproduce his pain Resp: Effort & Inspection: normal respiratory effort Auscultation: clear to auscultation bilaterally Cardio: Rate: regular rate Rhythm: regular rhythm Heart sounds: S1 normal heart sound present and S2 normal heart sound present GI: Other: Abdomen is soft and nontender Back/Spine/Pelvis: Other: The patient is tender in the region of the right upper back between his right scapula and the spine. Palpation in this area seems to reproduce his pain. Skin: Other: The skin is dry and unremarkable Neuro: General: patient oriented x3, gait normal, tone normal, moves all extremities, no focal motor deficits and CN's II-XI intact bilaterally Extrem: Other: There is no calf swelling or tenderness. No asymmetry. No peripheral edema. Course Course Course Narrative: RmE: 70 yold male presents to the ED for chest pain radidating to the back with pleurisy for the past 2 weeks. Patient sent to the ED for evaluation. labs, EKG, and imaging ordered Medical Decision Making Medical Decision Making MDM Narrative: The patient is a 70-year-old male who was sent to the emergency room from his primary care doctor's office. He had made an appointment 2 weeks ago with his primary care to discuss the chronic pains that he has in his right upper chest wall that he has been having for months or possibly years. He describes having complications from his coronary artery bypass surgery in 2019. This included treatment for an infection and summary building of his thorax with a pectoral flap. I believe that he has been having problems with discomfort in his right chest and right upper back over the last several years. He described an episode for example 2 years ago when he was using a winch on his boat trailer when he exacerbated his pain. As far as I can tell he made an appointment with his regular doctor to discuss what seems to be a worsening chronic pain and was sent here to make sure that he did not have a pulmonary embolism or other acute process. I do not have the impression that he is describing any new or acute symptoms. I do not think his symptoms represent an acute coronary syndrome. He has a D-dimer that is less than 150. He has a clear chest x-ray. He has detectable troponin. He has a normal proBNP. He has a normal CRP. Clinically the patient does not appear unwell or toxic. His pain seems very musculoskeletal on exam. I explained to the patient that I think that he is having a musculoskeletal, mechanical source of his pains. I suspect that this is related to the surgeries that he had including his CABG and complications. With regard to managing this chronic pain I think it might be good for him to see a audio visual facilities engineer. Perhaps you might ultimately need to be referred to a thoracic surgeon. However he will be given the contact information for [facility] physiatry for a follow up. He should also stay in touch with his PCP at the [place]. Lab Data 10/12/25 15:47 10/12/25 15:46 Labs: Lab Results 10/12/25 10/12/25 Range/Units 15:46 15:47 WBC 12.0 H (4.8-10.8) X10*3/uL RBC 5.42 (4.60-5.80) X10*6/uL Hgb 16.6 (14.0-18.0) g/dl Hct 49.3 (42.0-52.0) % MCV 91.0 (80.0-98.0) fL MCH 30.6 (27.0-33.0) pg MCHC 33.7 (31.0-36.0) g/dl RDW 13.1 (11.0-16.0) % Plt Count 256 (160-400) X10*3/uL MPV 9.6 (9.4-12.4) fL Immature Gran % (Auto) 0.5 H (0.0-0.4) % Neut % (Auto) 71.3 (45-73) % Lymph % (Auto) 17.0 L (20-40) % [place] % (Auto) 10.1 (2-11) % Eos % (Auto) 0.8 (0-4) % Baso % (Auto) 0.3 (0-2) % Lymph # (Auto) 2.0 (1.2-4.9) X10*3/uL [place] # (Auto) 1.2 (0.1-1.2) X10*3/uL Eos # (Auto) 0.1 (0.0-0.4) X10*3/uL Baso # (Auto) 0.0 (0.0-0.2) X10*3/uL Abs Immat Gran (auto) 0.06 H (0.00-0.03) X10*3/uL Absolute Neuts (auto) 8.6 H (2.0-8.3) x10*3/uL Absolute Nucleated RBC 0.000 (0.0-0.012) X10*3/uL Nucleated RBC % (auto) 0.0 (0.0-0.2) /100WBC PT 10.7 L (11.2-13.5) SEC INR 0.9 (0.9-1.1) APTT 32.6 (26.7-34.1) SEC D-Dimer High Sensitivty < 150 NG/ML Sodium 140 (135-145) mmol/L Potassium 3.6 (3.3-5.1) mmol/L Chloride 103 (96-108) mmol/L Carbon Dioxide 28 (22-29) mmol/L Anion Gap 13 (12-20) BUN 13 (9-16) mg/dL Creatinine 1.30 (0.5-1.4) mg/dL Estim Creat Clear Calc 50.0 Estimated GFR 55 Random Glucose 137 H (60-115) mg/dL Calcium 8.8 (8.4-10.2) mg/dL Total Bilirubin 0.4 (0.0-1.0) mg/dL AST 30 (5-37) U/L ALT 40 (0-40) U/L Alkaline Phosphatase 74 (39-117) U/L Troponin I High Sens < 2.7 (<3.5-35.0) ng/L C-Reactive Protein 0.10 (< or = 0.50) mg/dL NT-Pro-B Natriuret Pep 125.9 (<300) pg/mL Total Protein 7.3 (6.5-8.0) g/dL Albumin 4.8 (3.5-5.0) g/dL Influenza Type A (PCR) NEGATIVE (Negative) Influenza Type B (PCR) NEGATIVE (Negative) RSV RNA Qual (PCR) NEGATIVE (Negative) SARS-CoV-2 RNA (RT-PCR) NEGATIVE (Negative) Independent Interpretation I performed an independent interpretation of an: EKG Interpretation: EKG at 13:27 shows normal sinus rhythm at 77 beats per minute. There is an incomplete right bundle branch block. There are nonspecific ST and T-wave changes. These ST and T-wave changes are new since his last EKG from 2017 but seemed nonspecific. Discharge Plan Discharge Clinical Impression: Chest wall pain, Upper back pain on right side Patient Disposition: Home, Self-Care Additional Instructions: Your testing today seems very reassuring from the point of view of dangerous conditions such as a blood clot in your lungs or a heart attack or other concerning problems. I think the likely cause of your pain is a musculoskeletal, mechanical pain that is probably related to all of the surgeries that you have had on your chest. It may be useful for you to see a audio visual facilities engineer. You has been given the contact information for [facility] physiatry. A audio visual facilities engineer is a doctor who specializes in musculoskeletal issues. Therefore please contact the physiatry office tomorrow to try to arrange an appointment. Additionally I would stay in touch with your regular primary care doctor to see if your primary care doctor has any additional recommendations or ideas. Return to the emergency room if you feel significantly worse. Prescriptions: No Action finasteride 5 mg tablet 5 mg PO DAILY Qty: 90 3RF hydrochlorothiazide 25 mg tablet 25 mg PO DAILY Qty: 90 3RF lisinopril 20 mg tablet 20 mg PO DAILY Qty: 90 3RF clopidogrel [Plavix] 75 mg tablet 75 mg PO DAILY Qty: 90 3RF peg 3350-electrolytes [Golytely] 236-22.74-6.74 -5.86 gram recon soln 240 ml PO Q10M Qty: 4000 0RF Rx Instructions: as per split prep instructions, until fecal effluent is clear fluconazole 200 mg tablet 400 mg PO DAILY 14 Days Qty: 28 0RF Rx Instructions: do not take with Plavix, try to space out by 8-10 hours. amoxicillin 500 mg tablet 500 mg PO TID Spiriva Respimat 1.25 mcg/actuation mist 2 puff inhalation DAILY pantoprazole 40 mg tablet,delayed release (DR/EC) 40 mg PO DAILY tamsulosin 0.4 mg capsule 0.4 mg PO DAILY fluticasone propion-salmeterol [Advair Diskus] 500-50 mcg/dose blister with device 1 inh inhalation BID diclofenac sodium [Arthritis Pain (diclofenac)] 1 % gel 2 g topical QID Rx Instructions: apply to single elbow, wrist or hand; for hand includes palm/fingers/back of hand metoprolol tartrate 25 mg tablet 25 mg PO BID atorvastatin 40 mg tablet 40 mg PO DAILY ezetimibe 10 mg tablet 10 mg PO DAILY amlodipine 5 mg tablet 5 mg PO BID Qty: 120 4RF Referrals: [facility] Physiatry [Provider Group, Physiatry] Yovani Perea DO [Primary Care Provider, Internal Medicine] Interventions: ED Discharge Assessment Last Done: 10/12/25 17:23 Discharge Date/Time: 10/12/25 17:24 Print Language: Montserratian
[2025-10-12 15:53] LABS: MANUAL DIFF FLAG NO
[2025-10-12 15:56] LABS: Hematocrit 49.3 % (42.0-52.0); Hemoglobin 16.6 g/dl (14.0-18.0); Imm Gran Abs Auto 0.06 X10*3/uL (0.00-0.03); Imm Gran Pct Auto 0.5 % (0.0-0.4); Lymphocytes Absolute Auto 2.0 X10*3/uL (1.2-4.9); Mean Corpuscular HGB Conc 33.7 g/dl (31.0-36.0); Mean Corpuscular Hemoglobin 30.6 pg (27.0-33.0); Mean Corpuscular Volume 91.0 fL (80.0-98.0); NRBC Abs Auto 0.000 X10*3/uL (0.0-0.012); NRBC Pct Auto 0.0 /100WBC (0.0-0.2); Platelet Count 256 X10*3/uL (160-400); Red Blood Count 5.42 X10*6/uL (4.60-5.80); White Blood Count 12.0 X10*3/uL (4.8-10.8)
[2025-10-12 16:00] VITALS: BP 140/67; PULSE 64; RESP 18; O2SAT 98
[2025-10-12 16:01] LABS: INTERNATIONAL NORM RATIO 0.9 (0.9-1.1); Prothrombin Time 10.7 SEC (11.2-13.5)
[2025-10-12 16:04] LABS: Partial Thromboplastin Time 32.6 SEC (26.7-34.1)
[2025-10-12 16:14] LABS: Alanine Aminotransferase 40 U/L (0-40); Albumin Level 4.8 g/dL (3.5-5.0); Alkaline Phosphatase 74 U/L (39-117); Anion Gap 13 (12-20); Aspartate Amino Transferase 30 U/L (5-37); Blood Urea Nitrogen 13 mg/dL (9-16); Calcium 8.8 mg/dL (8.4-10.2); Carbon Dioxide 28 mmol/L (22-29); Chloride 103 mmol/L (96-108); Creatinine Clr Calc Pharmacy 50.0; Estimated Glomerular Filt Rate 55; Potassium 3.6 mmol/L (3.3-5.1); Sodium 140 mmol/L (135-145); Total Protein 7.3 g/dL (6.5-8.0)
[2025-10-12 16:25] LABS: Troponin-I High Sensitivity < 2.7 ng/L (<3.5-35.0)
[2025-10-12 16:34] LABS: NT Pro B Type Natriuretic Pept 125.9 pg/mL (<300)
[2025-10-12 16:39] LABS: D Dimer High Sensitivity < 150 NG/ML
[2025-10-12 17:01] LABS: Resp Syncy Virus RNA Qual PCR NEGATIVE (Negative); SARS COV2 PCR INHOUSE NEGATIVE (Negative)
[2025-10-12 17:23] VITALS: BP 140/67; PULSE 64; RESP 18; TEMP 36.7; O2SAT 98
--- OUTSIDE RECORDS SUMMARY | 2025-10-12 20:06 | XMS_ITS | Encounter Summary ---
Author Organization [facility] Address [address] [place] [id number] Phone Care Team Providers Care Tie Maker Name Role Phone Haider Green MD Primary Care Provider Luis Nguyen MD Primary Care Provider Encounter Details Date Type Department Care Team (Late st Contact Info) Description 08/23/2022 Procedure Pass [facility] Endoscopy Admitting Dept Virtual Department [address] [place] [address] Social History Tobacco Use Types Packs/Day Years Used Date Smoking Tobacco: Every Day Cigarettes Smokeless Tobacco: Never Sex and Gender Information Value Date Recorded Sex Assigned at Not on file Legal Sex Male 7:30 PM EDT Gender Identity Not on file Sexual Orientation Not on file documented as of this encounter Plan of Treatment Not on file documented as of this encounter Visit Diagnoses Not on filedocumented in this encounter Care Teams Tie Maker Relationship Specialty Start Date End Date Haider Green MD [address] [facility] [place] [address] PCP - General 08/13/17 02/17/23 Luis Nguyen MD [address] [place] [address] PCP - General Internal Medicine 02/18/23 documented as of this encounter Additional Source Comments The information contained in this document represents components of the legal health record. It is not the complete legal health record.[facility]
--- OUTSIDE RECORDS SUMMARY | 2025-10-12 20:06 | XMS_ITS | Encounter Summary ---
Author Organization [facility] Address [address] [place] [phone] Phone Care Team Providers Care Master Naval Parachutist Name Role Phone Haider Green MD Primary Care Provider Luis Nguyen MD Primary Care Provider Encounter Details Date Type Department Care Team (Late st Contact Info) Description 09/08/2019 Procedure Pass [facility] Endoscopy Admitting Dept Virtual Department [address] [place] [address] Social History Tobacco Use Types Packs/Day Years [...] on filedocumented in this encounter Care Teams Master Naval Parachutist Relationship Specialty Start Date End Date Haider Green MD [address] [place] [address] PCP - General 08/13/17 02/17/23 Luis Nguyen MD [address] [place] [address] PCP - General Internal Medicine 02/18/23 documented as of this encounter Additional Source Comments The information contained in this document represents components of the legal health record. It is not the complete legal health record.[facility]
--- OUTSIDE RECORDS SUMMARY | 2025-10-12 20:06 | XMS_ITS | Encounter Summary ---
Author Organization [place] [address] Care Team Providers Care Decoration Checker Name Role Phone Nasrin Molina Primary Care Provider [phone] Encounter Details Date Type Department Care Team ([facility] st Contact Info) Description 10/07/2025 Telephone Gastroenterology - [address] [phone] Dada Arellano MD [address] [address] Social History Tobacco Use Types Packs/Day Years Used Date Smoking Tobacco: Every Day Cigarettes 10 Started: 05/2010 Smokeless Tobacco: Current Alcohol Use Standard Drinks/Week Comments Yes 6 (1 standard drink = 0.6 oz pur e alcohol) Interpersonal Safety Answer Date Record ed Physical Abuse Unrecognized value 05/27/2025 Verbal Abuse Unrecognized value 05/27/2025 Sex and Gender Information Value Date Recorded Sex Assigned at Male 05/14/2025 2:57 PM EDT Legal Sex Male 12:30 PM EST Gender Identity Male 05/14/2025 2:57 PM EDT Sexual Orientation Not on file documented as of this encounter Progress Notes * Farnaz Rausch - 10/07/2025 12:18 PM EST SCHEDULED. * Juany Arellano - 10/07/2025 11:49 AM EST Pt is calling to schedule egd documented in this encounter Plan of Treatment Not on file documented as of this encounter Visit Diagnoses Not on filedocumented in this encounter Care Teams Decoration Checker Relationship Specialty Start Date End Date Nasrin Molina DO [address] [place] [address] [address] [place] [id number] PCP - General Internal Medicine 12/30/24 documented as of this encounter
--- OUTSIDE RECORDS SUMMARY | 2025-10-12 20:06 | XMS_ITS | Clinical Summary ---
Author Organization [facility] Address [address] [place] [address] Phone Care Team Providers Care Solderer Furnace Name Role Phone LissetteparkerNasrin Primary Care Provider [phone] Allergies No known active allergies Medications hydroCHLOROthia [...] total) into inhaler and inhale daily. Active polyethylene glycol (Golytely) 236-22.74-6.74 -5.86 gram solution Take 4L by mouth once for one dose. May substitue any PEG. Starting at 2PM the day before your procedure drink 1 8oz glasses at your own pace until you complete half of the gallon. Finish 2nd half of the gallon at 8PM. 4000 mL 5 Active bisacodyL (DULCOLAX) 5 mg EC tablet Take 2 tablets by mouth right before beginning bowel prep. 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 5 History of adenomatous polyp of colon 02/17/2025 Esophageal candidiasis 02/17/2025 Encounters Date Type Department Care Team Description 10/07/2025 Telephone Gastroenterology - [address] [place] [address] [place] [id number] Dada Arellano MD from Last 3 [...] AND DECOMPRESSION; Surgeon: Eb Mayfield MD; Location: [facility] MAIN OPERATING ROOM; Service: Spine; Laterality: Posterior; Medical History Medical History Date Comments Arteriosclerosis of both carotid arteries DX:Arteriosclerosis of both carotid arteries Coronary artery disease DX:Coron iron artery disease Hyperlipidemia DX:Hyperlipidemi a Hypertension DX:Hypertension COPD (chronic obstructive pu lmonary disease) ([facility] V24, [facility] V28) DX:COPD (chronic o bstructive pulmonary disease) ([facility]);COMMENT:mild GERD (gastroesophageal reflux disease) DX:GERD (gastroesophageal reflux disease) Social History Tobacco Use Types Packs/Day Years Used Date Smoking Tobacco: Every Day Cigarettes 10 Started: 05/2010 Smokeless Tobacco: Current Tobacco Cessation:Ready [...] PM EDT Sexual Orientation Not on file Last Filed Vital Signs Vital Sign Reading Time Taken Comments Blood Pressure 110/62 05/27/2025 9:02 AM EDT Pulse 58 05/27/2025 9:02 AM EDT Temperature 36.1 C (97 F) 05/27/2025 8:42 AM EDT Respiratory Rate 16 05/27/2025 9:02 AM EDT Oxygen Saturation 99% 05/27/2025 9:02 AM EDT Inhaled Oxygen Concentration - - Weight 72.1 kg (159 lb) 05/27/2025 8:01 AM EDT Height 162.6 cm (5' 4 ) 05/27/2025 8:01 AM EDT Body Mass Index 27.29 05/27/2025 8:01 AM EDT Plan of Treatment Health Maintenance Due Date Last Done Comments IPV Vaccines (2 of 3 - Adult catch-up series) 01/23/1987 12/26/1986 RSV Immunization Adult Patients (1 - Risk 50-74 years 1-dose series) 2005 Zoster Vaccines (3 of 3) 12/30/2020 11/04/2020, 08/28 Depression Screening 10/28/2024 Abdominal Aortic Aneurysm (AAA) Screen 12/31/2024 Cholesterol Screening (Lipid Panel) 12/31/2024 Hepatitis C Screening 12/31/2024 Medicare Annual Wellness Visit 12/31/2024 Social Influencers of Health Screening 12/31/2024 Hypertension/CHF/CAD Annual BMP Blood Test 02/18/2025 COVID-19 Vaccine ( - 2024- season) 2025 09/26/2024, 07/26/2022, 02/15/2022, Additional history exists Influenza Vaccine (#1) 2025 , 08/17/2024, 07/22/2023, Additional history exists Falls Risk Assessment 05/27/2026 05/27/2025 DTaP,Tdap,and Td Vaccines (7 - Td or Tdap) 05/31/2031 05/31/2021, 08/09/2012, 10/28/2010, Additional history exists Colorectal Cancer Screening: Colonoscopy 05/27/2035 05/27/2025 MMR Vaccines Aged Out 03/08/1999 No longer [...] this topic Medical Devices Implanted Type Area Telephone Information Clerk Device Identifier Shelf Expiration Date Model / Serial / Lot Sponge Surgiflo 8ml Hemostatic Matrix Absorbable Latex Free - [id number] Implanted:Qty: 1 on 09/25/2019 by Eb Mayfield MD Implants N/A: Spine Lumbar [employer] DAVIAN 10/27/2020 [id number] / / [id number] Procedures Procedure Name Priority Date/Time Associated Diagnosis Comments COLONOSCOPY Routine 05/27/2025 8:41 AM EDT Screening for colon cancer from Last 3 Months or Most Recently Relevant to Health Maintenance Results * COLONOSCOPY Anesthesia - MAC; [facility] [email or web address] ENDOSCOPY (05/27/2025 8:41 AM EDT) Anatomical Region Laterality Modality Endoscopy 05/27/2025 8:11 AM EDT Impressions 05/27/2025 8:43 AM EDT - Diverticulosis in the sigmoid colon. - One 5 mm polyp in the ascending colon, removed with a cold snare. Resected and retrieved. - Four 6 to 11 mm polyps at the splenic flexure, removed with a cold snare. Resected and retrieved. - One 6 mm polyp in the sigmoid colon, removed with a cold snare. Resected and retrieved. - The examination was otherwise normal on direct and retroflexion views. Recommendation: - Await pathology results. - Repeat colonoscopy in 2 years for surveillance. Narrative 05/27/2025 8:43 AM EDT [facility] GI Patient Name: Cullen Wilburn Procedure Date: 05/27/2025 8:11 AM Date of : 1955 Age: 70 Room: ROOM 16 Gender: Male Note Status: Finalized Attending MD: Dada Arellano MD, Procedure Date No Time: 05/27/2025 Procedure: Colonoscopy Indications: High risk colon cancer surveillance: Personal history of colonic polyps Providers: Dada Arellano MD Referring MD: Perlita Ocasio MD Medicines: Propofol per Anesthesia Complications: No immediate complications. Estimated Blood Loss: Estimated blood loss was minimal. Procedure: Pre-Anesthesia Assessment: - ASA Grade Assessment: II - A patient with mild systemic disease. After I obtained informed consent, the scope was passed under direct vision. Throughout the procedure, the patient's blood pressure, pulse, and oxygen saturations were monitored continuously.The Colonoscope was introduced through the anus and advanced to the cecum, identified by appendiceal orifice and ileocecal valve. The colonoscopy was performed without difficulty. The patient tolerated the procedure well. The quality of the bowel preparation was good. Findings: The perianal and digital rectal examinations were normal. Multiple diverticula were found in the sigmoid colon. A 5 mm polyp was found in the ascending colon. The polyp was sessile. The polyp was removed with a cold snare. Resection and retrieval were complete. Four sessile polyps were found in the splenic flexure. The polyps were 6 to 11 mm in size. These polyps were removed with a cold snare. Resection and retrieval were complete. A 6 mm polyp was found in the sigmoid colon. The polyp was sessile. The polyp was removed with a cold snare. Resection and retrieval were complete. The exam was otherwise without abnormality on direct and retroflexion views. Procedure Code(s): --- Professional --- 74133, Colonoscopy, flexible; with removal of tumor(s), polyp(s), or other lesion(s) by snare technique Diagnosis Code(s): --- Professional --- Z86.010, Personal history of colonic polyps D12.2, Benign neoplasm of ascending colon D12.5, Benign neoplasm of sigmoid colon D12.3, Benign neoplasm of transverse colon (hepatic flexure or splenic flexure) K57.30, Diverticulosis of large intestine without perforation or abscess without bleeding CPT copyright 2020 [employer]. All rights reserved. The codes documented in this report are preliminary and upon oyster buyer review may be revised to meet current compliance requirements. Dada Arellano MD 05/27/2025 8:42:54 AM This report has been signed electronically.Dada Arellano MD Number of Addenda: 0 Note Initiated On: 05/27/2025 8:11 AM Scope In: Scope Out: Endoscopy Department at [facility] - [address] [place] [id number] Procedure Note Dada Arellano MD - 05/27/2025 [facility] GI Patient Name: Cullen Wilburn Procedure Date: 05/27/2025 8:11 AM Date of : 1955 Age: 70 Room: ROOM 16 Gender: Male Note Status: Finalized Attending MD: Dada Arellano MD, Procedure Date No Time: 05/27/2025 Procedure: Colonoscopy Indications: High risk colon cancer surveillance: Personalhistory of colonic polyps Providers: Dada Arellano MD Referring MD: Perlita Ocasio MD Medicines: Propofol per Anesthesia Complications: No immediate complications. Estimated Blood Loss: Estimated blood loss was minimal. Procedure: Pre-Anesthesia Assessment: - ASA Grade Assessment: II - A patient with mild systemic disease. After I obtained informed consent, the scope was passed under direct vision. Throughout theprocedure, the patient's blood pressure, pulse, and oxygen saturations were monitored continuously.The Colonoscope was introduced through the anus and advanced to the cecum, identified by appendiceal orifice and ileocecal valve. The colonoscopy was performed without difficulty. The patient tolerated the procedure well. The quality of the bowel preparation was good. Findings: The perianal and digital rectal examinations were normal. Multiple diverticula were found in the sigmoidcolon. A 5 mm polyp was found in the ascending colon. The polyp was sessile. The polyp was removed with acold snare. Resection and retrieval were complete. Four sessile polyps were found in the splenicflexure. The polyps were 6 to 11 mm in size. These polypswere removed with a cold snare. Resection and retrieval were complete. A 6 mm polyp was found in the sigmoid colon. Thepolyp was sessile. The polyp was removed with a coldsnare. Resection and retrieval were complete. The exam was otherwise without abnormality ondirect and retroflexion views. Procedure Code(s): --- Professional --- 74283, Colonoscopy, flexible; with removal of tumor(s), polyp(s), or other lesion(s) by snare technique Diagnosis Code(s): --- Professional --- Z86.010, Personal history of colonic polyps D12.2, Benign neoplasm of ascending colon D12.5, Benign neoplasm of sigmoid colon D12.3, Benign neoplasm of transverse colon (hepatic flexure or splenic flexure) K57.30, Diverticulosis of large intestine without perforation or abscess without bleeding CPT copyright 2020 [employer]. All rights reserved. The codes documented in this report are preliminary and upon oyster buyer reviewmay be revised to meet current compliance requirements. Dada Arellano MD 05/27/2025 8:42:54 AM This report has been signed electronically.Dada Arellano MD Number of Addenda: 0 Note Initiated On: 05/27/2025 8:11 AM Scope In: Scope Out: Endoscopy Department at [facility] - [address] [place] [address] IMPRESSION: - Diverticulosis in the sigmoid colon. - One 5 mm polyp in the ascending colon, removedwith a cold snare. Resected and retrieved. - Four 6 to 11 mm polyps at the splenic flexure, removed with a cold snare. Resected andretrieved. - One 6 mm polyp in the sigmoid colon, removed witha cold snare. Resected and retrieved. - The examination was otherwise normal on directand retroflexion views. Recommendation: - Await pathology results. - Repeat colonoscopy in 2 years for surveillance. Perlita Ocasio MD GI~PROCEDURE ORDERABLES Final Result from Last 3 Months or Most Recently Relevant to Health Maintenance Insurance MEDICARE [facility] Care Teams Solderer Furnace Relationship Specialty Start Date End Date Nasrin Molina [address] [place] [address] [address] [place] [id number] PCP - General Internal Medicine 12/30/24
--- OUTSIDE RECORDS SUMMARY | 2025-10-12 20:06 | XMS_ITS | Clinical Summary ---
Author Organization [facility] Address [address] [address] Phone Care Team Providers Care Rfid Analyst Name Role Phone Luis Nguyen MD Primary Care Provider Allergies No known active allergies Medications amLODIPine (NORVASC) 5 MG tablet Take 5 mg by mouth. 02/05/2019 Active clopidogrel (PLAVIX) 75 mg tablet Take 75 mg by mouth daily. Active hydroCHLOROthiaz aranza (HYDRODIURIL) 12.5 MG tablet Take 12.5 mg by mouth daily. Active metoprolol succinate (TOPROL-XL) 25 MG 24 hr tablet Take 25 mg by mouth daily. Active raNITIdine (ZANTAC) 150 MG tablet Take 150 mg by mouth 2 (two) times a day. Active aspirin 81 MG EC tablet Take 81 mg by mouth daily. Active finasteride (PROPECIA) 1 mg tablet Take 1 mg by mouth daily. Active methocarbamol (ROBAXIN) 500 MG tablet Take 500 mg by mouth as needed. Active tamsulosin (FLOMAX) 0.4 mg Cap Take 0.4 mg by mouth daily. Active tiotropium (SPIRIVA HANDIHALER) 18 mcg inhalation capsule Inhale 18 mcg into the lungs daily. Active Social History Tobacco Use Types Packs/Day Years Used Date Smoking Tobacco: Every Day Cigarettes Smokeless Tobacco: Never Education Answer Date Recorded Are you interested in more education? Not on piyush e 02/22/2023 Are you concerned about learning? Not on file 02/22/2023 No 02/22/2023 No 02/22/2023 Digital Access Answer Date Recorded No 03/22/2023 No 03/22/2023 No 03/22/2023 Reliable internet access at home? Not on file 03/22/2023 Device with a working camera? Not on file Sex and Gender Information Value Date Recorded Sex Assigned at Not on file Legal Sex Male 7:30 PM EDT Gender Identity Not on file Sexual Orientation Not on file Last Filed Vital Signs Vital Sign Reading Time Taken Comments Blood Pressure 109/68 09/08/2019 10:34 AM EST Pulse 59 09/08/2019 9:25 AM EST Temperature - - Respiratory Rate 16 09/08/2019 10:34 AM EST Oxygen Saturation 95% 09/08/2019 10:34 AM EST Inhaled Oxygen Concentration - - Weight 72.6 kg (160 lb) 09/08/2019 9:25 AM EST Height 165.1 cm (5' 5 ) 09/08/2019 9:25 AM EST Body Mass Index 26.63 09/08/2019 9:25 AM EST Plan of Treatment Health Maintenance Due Date Last Done Comments LIPID PANEL 1955 POTASSIUM LEVEL 1955 DEPRESSION SCREENING 1967 SMOKING Hx and SMOKELESS TOBACCO SCREENING 1968 HEPATITIS C SCREENING 1973 COLOGUARD 2000 COLONOSCOPY 2000 COLORECTAL CANCER SCREENING 2000 FIT TEST 2000 FOBT 2000 SIGMOIDOSCOPY 2000 VIRTUAL COLONOSCOPY 2000 ZOSTER VACCINES (1 of 2) 2005 PNEUMOCOCCAL VACCINES (50+ years) (2 of 2 - PCV) 01/10/2019 01/10/2018, 07/24/2011 ABDOMINAL AORTIC ANEURYSM (AAA) SCREENING 2020 INFLUENZA VACCINE (#1) 2025 0, 07/29/2019, 08/07/2018, Additional history exists COVID-19 VACCINE ( season) 2025 09/02/2021, 01/07/2021, 12/10/2020 RSV VACCINE (1 - 1-dose 75+ series) 2030 Adult Td,Tdap Booster 05/31/2031 05/31/2021, 011 HEPATITIS A VACCINES Aged Out No long er eligible based on patient's age to complete this topic HIB VACCINES Aged Out No longer eligi ble based on patient's age to complete this topic MENINGOCOCCAL VACCINES (ACWY) Aged Out No longer eligible based on patient's age to complete this topic MENINGOCOCCAL VACCINES (B) Aged Out N o longer eligible based on patient's age to complete this topic Medical Devices Implanted Type Area Polysomnograph Tech Device Identifier Shelf Expiration Date Model / Serial / Lot Metal Wire-Chest Insurance MEDICARE PART A & B MEDICARE PART A & B MEDICARE PART A & B MEDICARE PART A & B MEDICARE PART A & B MEDICARE PART A & B MEDICARE PART A & B MEDICARE PART A & B MEDICARE PART A & B Care Teams Rfid Analyst Relationship Specialty Start Date End Date Luis Nguyen MD [address] [place] [address] PCP - General Internal Medicine 02/18/23 Additional Source Comments The information contained in this document represents components of the legal health record. It is not the complete legal health record.[facility]
--- OUTSIDE RECORDS SUMMARY | 2025-10-12 20:06 | XMS_ITS | Clinical Summary ---
Author Organization [facility] Prior to 03/27/[address] [place] [id number] Care Team Providers Care Track Grinder Name Role Phone Haider Green MD Primary Care Provider [phone] Allergies No known active allergies Medications Medication [...] mg by mouth daily. 0 Active Tiotropium [place] Monohydrate 2.5 MCG/ACT AERS Inhale into the [...] this topic Medical Devices Implanted Type Area Cruise Staff Member Device Identifier Shelf Expiration Date Model / Serial / Lot Sponge Surgiflo 8ml Hemostatic Matrix Absorbable Latex Free - [id number] - [id number] Implanted:Qty: 1 on 09/25/2019 by Eb Mayfield MD at [facility] Med Hemostatic Agent Posterior : Spine Lumbar [facility] 10/27/2020 [id number] / / [id number] Care Teams Track Grinder Relationship Specialty Start Date End Date Haider Green MD [address] [place] [address] PCP - General Internal Medicine 08/15/18
== END 2025-10-12 17:24 | disposition home or self-care (01) ==
PROVIDERS: Physician Assistant; Emergency Provider Emergency Medicine; PCP Family Medicine
DX: R07.89 Other chest pain (principal); M54.6 Pain in thoracic spine; R06.02 Shortness of breath; I45.10 Unspecified right bundle-branch block; Z03.818 Encounter for observation for suspected exposure to other biological agents ruled out
CPT/HCPCS: 71046; 80053; 83880; 84484; 85025; 85379; 85610; 85730; 86140; 87637; 93005; 99283; 99284

== ENCOUNTER → 2025-10-12 13:20 | Outpatient (BNV) | payer MEDICARE, OTHER, SELFPAY | PROVIDERS: Visit Provider Internal Medicine Cardiovascular Disease | DX: I45.10 Unspecified right bundle-branch block (principal) | CPT/HCPCS: 93010 ==

== ENCOUNTER → 2025-10-12 15:33 | Outpatient (BNV) | payer MEDICARE, OTHER, SELFPAY | PROVIDERS: Emergency Provider Emergency Medicine; PCP Family Medicine; Visit Provider Radiology Diagnostic Radiology | DX: J44.9 Chronic obstructive pulmonary disease, unspecified (principal) | CPT/HCPCS: 71046 ==